=== PATIENT | female | born 1980 | race Caucasian/White ===

== ENCOUNTER 2023-10-02 09:15 | Emergency (ER) | payer OTHER, MEDICARE, SELFPAY ==
[2023-10-02 09:16] VITALS: BP 157/80; PULSE 84; RESP 16; TEMP 36.8; O2SAT 99; BMI 55.4
--- NOTE | 2023-10-02 09:30 | ED.VIS.FALL ---
HPI HPI - Fall History of Present Illness Chief Complaint: Fall Informant: patient and EMS Narrative Narrative: 43-year-old female presenting to the emergency room with a chief complaint of fall. Patient slipped in the mud while pushing the trash can. She states she went down into the splits with the right leg coming forward and ending up with pressure onto the left anterior knee. She notes a left knee laceration and pain. She notes right hamstring pain. She notes her last tetanus was about 3 years ago. History of immunodeficiency. She denies any torso or arm injuries. Tetanus Immunization: <5 years PFSH PFS Medical History Anxiety Asthma Depression Diabetes Diabetic neuropathy Fibromyalgia History of kidney stones History of TMJ disorder Hypercholesteremia Hypertension Hypothyroid Osteoarthritis PTSD (post-traumatic stress disorder) Home Medications cephalexin 500 mg capsule 500 mg PO Q6 #28 CAPSULES 10/02/23 [Rx Last Taken Unknown] hydrocodone-acetaminophen 5-325mg 5mg-325mg 1 tab PO Q6H PRN PRN Pain 3 days #10 TABLETS 10/02/23 [Rx Last Taken Unknown] Allergy/AdvReac Type Severity Reaction Status Date / Time doxycycline Allergy Severe Nausea/Vom/ Verified 10/02/23 09:22 Diarrhea montelukast [From Singulair] Allergy Severe Other Verified 10/02/23 09:22 adhesive tape AdvReac Mild Rash Verified 10/02/23 09:22 Surgical History History of ankle surgery Social History Smoking Status: Never smoker ROS ROS ED Constitutional Constitutional ED: Denies chills or weight loss Eyes Eyes: Denies change in vision or diplopia ENT ENT ED: Denies ear pain, rhinorrhea or sore throat Cardiovascular Cardiovascular: Denies chest pain, orthopnea, palpitations or racing heartbeat Respiratory/Chest Respiratory/Chest: Denies cough, dyspnea or orthopnea Gastrointestinal Gastrointestinal: Denies abdominal pain, diarrhea, nausea or vomiting Genitourinary Genitourinary ED: Denies dysuria, hematuria or urinary frequency Musculoskeletal Musculoskeletal: Reports other Details: See history of present illness ; Denies arthralgias, back pain, myalgias or neck pain Integumentary Reports other Details: Left knee anterior laceration ; Denies abscess or rash Neurologic Neurologic: Denies headache(s) or weakness Psychiatric Psychiatric: Denies anxiety, depression, suicidal ideation or suicidal thoughts Endocrine Endocrinology: Denies polydipsia, polyphagia or polyuria Allergic/Immunologic Allergic/Immunologic ED: Denies mouth swelling, tongue swelling or urticaria EXAM Physical Exam Const Vital Signs: 10/02/23 09:16 Temperature 98.2 F Temperature Source Temporal Pulse Rate 84 Respiratory Rate 16 Blood Pressure 157/80 H Blood Pressure Mean 105 Pulse Ox 99 Oxygen Delivery Method Room Air Positive well nourished, well developed and obese General Appearance ED: well developed Nutritional Appearance: obese HEENT Reports normocephalic, head/scalp atraumatic and moist mucous membranes Eyes PERRL and EOMs intact bilaterally Neck no lymphadenopathy, supple and no JVD Resp normal respiratory effort and clear to auscultation bilaterally Cardio regular rate, regular rhythm and no murmurs GI normal to inspection, nondistended, normoactive bowel sounds and non-tender Palpation: soft Back/Spine no CVA tenderness and normal ROM Extremity Extremity Narrative: Patient with pain right hamstring distribution. There is an anterior left knee laceration measuring about 6 cm in an L-shaped pattern. Extensor mechanism is intact. Neurovascular intact distally bilaterally General Extremety ED: Negative for edema General Extremity: Negative for edema Neuro oriented x3 and CN's II-XII intact bilaterally Sensorium / Orientation: alert Motor Exam: strength 5/5 throughout Psych mental status grossly normal Mood & Affect: Negative for depressed or tearful Skin no rashes or lesions noted and no wounds MDM MDM MDM Narrative Medical decision making narrative: My depend interpretation of the plain films of the right femur is no acute fracture. My independent interpretation of plain films of the pelvis is no acute fracture. My independent interpretation of the two-view knee is no acute fracture or soft tissue injury noted. Patient received [place] and Zofran for pain and nausea control. The left knee laceration was locally anesthetized using 1% lidocaine. It was washed with Shur-Clens irrigated and explored. A small amount of ground material was removed from the wound. The wound was explored in a bloodless field. Wound was closed using a total of 15 simple interrupted 4-0 Ethilon sutures. Wound was then dressed with bacitracin Telfa and then Uriah wrap. Stitches will need to be removed in 10 days. With her immunodeficiency disorder I will write her Keflex. I will also write for some pain medication. Patient to expect increasing soreness over the next 24 to 48 hours. Patient to return if worsening or concerns History & Record Review Discussion w/independent historian: EMS personnel, Patient and Significant other Radiography Diagnostic Testing: Clinical Impression(s) from Imaging Studies Femur X-Ray 10/02/23 09:54 IMPRESSION: Normal x-ray examination of the femur. Electronically Signed: Srinivasa Barfield MD at 10:13 EDT , Knee X-Ray 10/02/23 09:54 IMPRESSION: Soft tissue swelling/injury seen, inferior to the patella. Electronically Signed: Srinivasa Barfield MD at 10:13 EDT , Pelvis X-Ray 10/02/23 09:54 IMPRESSION: Normal x-ray examination of the pelvis. Electronically Signed: Srinivasa Bafrield MD at 10:11 EDT , Discharge Plan Triage Chief Complaint: Fall Other Complaint: Laceration ED Provider: Fracisco Hawk Dx/Rx/DC Orders Clinical Impression: Hamstring muscle strain, Fall, Laceration of knee Instructions: ED Laceration, All Closures, ED Muscle Strain, Extremity Prescriptions: New hydrocodone-acetaminophen [hydrocodone-acetaminophen] 5-325 mg tablet 1 tab PO Q6H PRN PRN (Reason: Pain) 3 Days Qty: 10 0RF cephalexin [cephalexin] 500 mg capsule 500 mg PO Q6 Qty: 28 0RF Primary Care Provider: [facility] Doctor,Out of Referrals: Khoa Licea MD [Med Staff - [employer]] - 10 Day for suture removal [facility] Doctor,Out of [Primary Care Provider] - Disposition Disposition: Home, Self Care
--- NOTE | 2023-10-02 09:54 | RAD_ITS ---
STUDY: X-RAY - PELVIS REASON FOR EXAM: Female, 43 years old. Pain following a fall. TECHNIQUE: One view of the pelvis was obtained. COMPARISON: None. FINDINGS: There is a non-specific bowel gas pattern. IUD seen within the pelvis. Partial sacralization of the transverse process of the L5 vertebrae. Normal bilateral iliac wings, sacroiliac joints and visualized sacrum. Normal visualized bilateral superior and inferior pubic rami. Normal pubic symphysis. Normal ischial tuberosities. Normal visualized right femoral head. Normal right acetabulum. Normal right hip joint. Normal visualized left femoral head. Normal left acetabulum. Normal left hip joint. RAD/Pelvis 1 or 2 Views IMPRESSION: Normal x-ray examination of the pelvis. Electronically Signed: Srinivasa Barfield MD at 10:11 EDT ,
--- NOTE | 2023-10-02 09:54 | RAD_ITS ---
STUDY: X-RAY - RIGHT FEMUR REASON FOR STUDY: Female, 43 years old. Pain following a fall. TECHNIQUE: 4 view(s) of the femur. COMPARISON: None. FINDINGS: Normal visualized femur. Normal visualized soft tissue structure. RAD/Femur Min 2 Views IMPRESSION: Normal x-ray examination of the femur. Electronically Signed: Srinivasa Barfield MD at 10:13 EDT ,
--- NOTE | 2023-10-02 09:54 | RAD_ITS ---
STUDY: X-RAY - LEFT KNEE REASON FOR EXAM: Female, 43 years old. Laceration following a fall. TECHNIQUE: 2 view(s) of the knee. COMPARISON: None. FINDINGS: Normal visualized distal femur. Normal visualized proximal tibia and fibula. Normal proximal tibiofibular articulation. Normal medial femorotibial compartment. Normal lateral femorotibial compartment. Normal patellofemoral articulation. Soft tissue swelling is seen caudad to the patella. RAD/Knee 1 or 2 Views IMPRESSION: Soft tissue swelling/injury seen, inferior to the patella. Electronically Signed: Srinivasa Barfield MD at 10:13 EDT ,
[2023-10-02] MEDS: HYDROcodone Bitartrate/Apap 5/325 Tablet PO (10:07)
[2023-10-02] MEDS: Ondansetron ODT 4 MG Tablet PO (10:09)
[2023-10-02 10:42] VITALS: O2SAT 98
[2023-10-02] MEDS: Lidocaine 1% (20 ml mdv) 20 ML Vial INFILT (10:47)
[2023-10-02 10:48] VITALS: BP 142/79; PULSE 88; RESP 17; TEMP 36.2; O2SAT 98
== END 2023-10-02 11:04 | disposition home or self-care (01) ==
LOC: ED 11:01
PROVIDERS: Emergency Provider Emergency Medicine; Visit Provider Emergency Medicine
DX: S81.022A Laceration with foreign body, left knee, initial encounter (principal); Z68.43 Body mass index [BMI] 50.0-59.9, adult; S76.311A Strain of muscle, fascia and tendon of the posterior muscle group at thigh level, right thigh, initial encounter; W01.0XXA Fall on same level from slipping, tripping and stumbling without subsequent striking against object, initial encounter; Y93.89 Activity, other specified; Y99.8 Other external cause status; E66.9 Obesity, unspecified
CPT/HCPCS: 12002; 72170; 73552; 73560; 99285

== ENCOUNTER → 2023-11-09 | Outpatient (CLI) | payer OTHER, MEDICARE, SELFPAY ==
[2023-11-09 17:59] LABS: Hemoglobin A1c 9.2 % (3.8-5.6)
[2023-11-12 14:08] LABS: Insulin Level 1.6 uIU/mL (2.6-24.9)
== END | disposition home or self-care (01) ==
LOC: MFPLAB 15:46
PROVIDERS: Visit Provider Family Medicine
DX: E10.9 Type 1 diabetes mellitus without complications (principal)
CPT/HCPCS: 36415; 83036; 83525; 84681

== ENCOUNTER → 2023-11-19 | Outpatient (CLI) | payer OTHER, MEDICARE, SELFPAY ==
--- NOTE | 2023-11-19 08:00 | MRI_ITS ---
STUDY: MRI LEFT KNEE REASON FOR EXAM: Female, 43 years old. Pain. Knee locking. Status post fall. Rule out meniscus tear. TECHNIQUE: Standardized fat and water weighted pulse sequences were obtained in all 3 orthogonal planes. COMPARISON: Left knee radiographs dated 11/05/2023. FINDINGS: Normal medial meniscus. Normal hyaline cartilage of the medial femorotibial compartment. Normal medial femoral condyle and tibial plateau. There is a mild grade I MCL sprain with periligamentous edema (T2 series 9 image 19). Normal distal semimembranosus, gracilis and semitendinosus tendons. Normal lateral meniscus. Normal hyaline cartilage of the lateral femorotibial compartment. Normal lateral femoral condyle and tibial plateau. Normal proximal tibiofibular articulation. Normal lateral collateral (fibular) ligament. Normal popliteus tendon. Normal biceps femoris tendon. Normal anterior cruciate ligament (ACL). Normal posterior cruciate ligament (PCL). There is low-grade chondromalacia patellae. Congruent patellofemoral articulation. Normal medial and lateral patellar retinaculum. Normal quadriceps tendon. Normal patellar tendon. Normal Hoffa''s fat pad. There is a small joint effusion. There is a tiny popliteal cyst. There is mild subcutaneous soft tissue edema along the anterior aspect of the knee. There is no acute fracture. MRI/Lower Ext Joint Only (Routine) IMPRESSION: Mild grade I MCL sprain. Low-grade chondromalacia patellae. Small joint effusion, with a tiny popliteal cyst. Mild subcutaneous soft tissue edema along the anterior aspect of the knee. No discrete meniscal tear. Electronically Signed: Jorge Morales MD at 12:26 EDT ,
== END | disposition home or self-care (01) ==
LOC: MRI 07:32
PROVIDERS: PCP Family Medicine; Referring Provider Orthopaedic Surgery; Visit Provider Orthopaedic Surgery
DX: M25.562 Pain in left knee (principal)
CPT/HCPCS: 73721

== ENCOUNTER 2023-11-20 17:56 | Emergency (ER) | payer OTHER, MEDICARE, SELFPAY ==
[2023-11-20 17:57] VITALS: BP 161/85; PULSE 100; RESP 18; TEMP 36.2; O2SAT 98; BMI 51.3
--- NOTE | 2023-11-20 19:55 | EDS_ITS ---
HPI History of Present Illness Chief Complaint: Hyperglycemia [facility] Medical History Anxiety Asthma Depression Diabetes Diabetic neuropathy Fibromyalgia History of kidney stones History of TMJ disorder Hypercholesteremia Hypertension Hypothyroid Osteoarthritis PTSD (post-traumatic stress disorder) Home Medications ?Medication ?Instructions ?Recorded ?Last Taken ?Type amlodipine 5 mg tablet 5 mg PO DAILY 11/05/23 Unknown History azelastine 205.5 mcg (0.15 %) 1 spray intranasal BID 11/05/23 Unknown History nasal spray buspirone 30 mg tablet 30 mg PO BID 11/05/23 Unknown History cetirizine 10 mg capsule (Zyrtec) 10 mg PO DAILY PRN 11/05/23 Unknown History chlorthalidone 15 mg tablet 15 mg PO DAILY 11/05/23 Unknown History dexlansoprazole 60 mg 60 mg PO DAILY 11/05/23 Unknown History capsule,biphase delayed release (Dexilant) gabapentin 100 mg capsule 1,200 mg PO DAILY 11/05/23 Unknown History immun glob G 10 gram/50 mL(20 8,000 mg subcut QWEEK 11/05/23 Unknown History %)-pro-IgA 0-50 mcg/mL subcutaneous soln (Hizentra) insulin lispro 200 unit/mL (3 mL) 20 unit subcut DAILY 11/05/23 Unknown History subcutaneous pen (Humalog KwikPen U-200 Insulin) levothyroxine 50 mcg tablet 50 mcg PO DAILY 11/05/23 Unknown History (Unithroid) mometasone-formoterol HFA 50 mcg-5 2 puff inhalation Q12H 11/05/23 Unknown Hi story mcg/actuation aerosol inhaler (Dulera) prednisone 10 mg tablet 10 mg PO DAILY 11/05/23 Unknown History rosuvastatin 5 mg tablet 5 mg PO DAILY 11/05/23 Unknown History tezepelumab-ekko 210 mg/1.91 mL 210 mg subcut Q4W 11/05/23 Unknown History (110 mg/mL) subcutaneous pen injector (Tezspire) tiotropium bromide 2.5 2 puff inhalation DAILY 11/05/23 Unknown History mcg/actuation mist for inhalation (Spiriva Respimat) tizanidine 2 mg capsule 2 mg PO Q8H PRN 11/05/23 Unknown History sulfamethoxazole 800 1 tab PO BID #14 tabs 11/20/23 Unknown Rx mg-trimethoprim 160 mg tablet (Bactrim DS) Allergy/AdvReac Type Severity Reaction Status Date / Time doxycycline Allergy Severe Nausea/Vom/ Verified 11/20/23 17:57 Diarrhea montelukast (From Singulair) Allergy Severe Other Verified 11/20/23 17:57 adhesive tape AdvReac Mild Rash Verified 11/20/23 17:57 Surgical History History of ankle surgery Social History Smoking Status: Never smoker EXAM Physical Exam Const Vital Signs: 11/20/23 17:57 11/20/23 20:00 11/20/23 20:08 Temperature 97.2 F L Temperature Source Temporal Pulse Rate 100 96 Respiratory Rate 18 20 H Respiratory Pattern Normal Blood Pressure 161/85 H 157/72 H Blood Pressure Mean 110 100 Pulse Ox 98 99 Oxygen Delivery Method Room Air Room Air 11/20/23 22:00 Temperature Temperature Source Pulse Rate 92 Respiratory Rate 26 H Respiratory Pattern Blood Pressure 149/75 H Blood Pressure Mean 99 Pulse Ox 94 Oxygen Delivery Method Room Air MDM MDM MDM Narrative Medical decision making narrative: HISTORY OF PRESENT ILLNESS: 43-year female presents with concern for elevated blood sugar. Note she is history of diabetes has insulin pump in place however her blood sugars have been high for the last week. She does note urinary frequency and suprapubic pressure. REVIEW OF SYSTEMS: Pertinent positives: Elevated blood sugar, frequency, suprapubic pressure Pertinent negatives: Vomiting, diarrhea PHYSICAL EXAM: Nursing triage notes reviewed, Vital signs reviewed Constitutional: please see mdm HENT: MMM Eyes: Pupils equal round and reactive to light, Extraocular muscles intact Neck: No stridor, no JVD, full neck ROM Lungs: Clear to auscultation, No wheezing or rales. No increased work of breathing, no conversational dyspnea, no accessory muscle use, no nasal flaring. No respiratory distress noted Heart: Regular rate and rhythm, No murmurs, No rubs and No gallops, 2+ distal pulses (radial, femoral, posterior tibial) in all extremities Abdomen: Soft, there is no tenderness, rigidity, rebound or guarding, no obvious peritoneal signs, no palpable pulsatile abdominal masses, no auscultated abdominal bruit : No CVAT Extremities: No edema Neuro: No focal neurological deficits, cranial nerves II through XII intact, 5/5 strength in all extremities. Intact sensation to light touch in all extremities, 2+ reflexes bilateral patella tendons. Normal gait. No ataxia. Skin: No rash or lesions noted MEDICAL DECISION MAKING: Chief Complaint: Elevated blood sugar External records reviewed: No recent hospitalizations, no hospitalizations for DKA noted Factors affecting care: Type 2 diabetes MDM Narrative: Patient was hemodynamically stable, afebrile and nontoxic-appearing. Exam without obvious focus of infection. I considered the following differential diagnosis: DKA, HHS, poorly controlled diabetes I obtained a broad lab and imaging workup to further elucidate the etiology patient complaints ALL IMAGES (IF OBTAINED) HAVE BEEN PERSONALLY REVIEWED AND INTERPRETED BY MYSELF. VBG without evidence of metabolic acidosis, bicarb is greater than 15 BMP without evidence of severe elevation anion gap, bicarb 25, there is hyponatremia and hypokalemia (hypokalemia replace with oral potassium), blood sugar 397 Lipase is wnl indicating no pancreatic inflammation. Acetone small consistent with poor glucose utilization Urinalysis shows no evidence of urinary inflammation suggestive of UTI The synthesis of the patient's history, physical exam, labs images suggest poorly controlled diabetes. The patient does have an insulin pump. I encouraged her to continue with her ongoing insulin therapy via insulin pump and to call her sales and marketing agent for outpatient antidiabetic medication titration. The patient and/or family, caregivers express understanding. The patient and/or family, caregivers agrees with the plan. Shared decision making: I will have a discussion with the patient and or visitors regarding risk/benefits of further testing or admission. They will be made aware of of the risk/benefits inherent in this decision they will be given the opportunity to voice understanding. Total critical care time today provided was at least 0 [] minutes. This excludes separately billable procedures. Critical care time (if documented) is secondary to the patient having high probability of clinically significant/life threatening deterioration in the patient's condition which required my urgent intervention. Impression: 1. Poorly controlled type 2 diabetes 2. History of type 2 diabetes 3. Pseudohyponatremia 4. Hypokalemia Dispo: Discharge home This note was generated with Echo[employer] dictation software. It may contain incorrect words, spelling, and punctuation that were not noted in review of the chart prior to signing. Lab Data Labs: Laboratory Results - last 24 hr 11/20/23 11/20/23 11/20/23 19:45 20:12 21:02 WBC 12.5 H RBC 5.08 Hgb 14.7 Hct 44.0 MCV 86.6 MCH 28.9 MCHC 33.4 RDW Std Deviation 50.3 H RDW Coeff of Danuta 15.7 H Plt Count 340 MPV 11.8 Immature Gran % (Auto) 0.600 Neut % (Auto) 83.2 H Lymph % (Auto) 12.3 L Imperial % (Auto) 3.5 Eos % (Auto) 0.1 Baso % (Auto) 0.3 Absolute Neuts (auto) 10.4 H Absolute Lymphs (auto) 1.53 Nucleated RBC % 0 Sodium 132 L Potassium 2.7 L* Chloride 91 L Carbon Dioxide 25.0 Anion Gap 16 H BUN 10 Creatinine 0.88 Estim Creat Clear Calc 120.13 Est GFR (MDRD) Af Amer 90 Est GFR (MDRD) Non-Af 74 BUN/Creatinine Ratio 11.4 Glucose 397 H Calcium 9.8 Lipase 32 Urine Color Urine Clarity Urine pH Ur Specific Lindsey Urine Protein Urine Glucose (UA) Urine Ketones Urine Occult Blood Urine Nitrite Urine Bilirubin Urine Urobilinogen Ur Leukocyte Esterase Acetone Level SMALL H POC Glucose 400 H 11/20/23 11/20/23 22:19 22:50 WBC RBC Hgb Hct MCV MCH MCHC RDW Std Deviation RDW Coeff of Danuta Plt Count MPV Immature Gran % (Auto) Neut % (Auto) Lymph % (Auto) Imperial % (Auto) Eos % (Auto) Baso % (Auto) Absolute Neuts (auto) Absolute Lymphs (auto) Nucleated RBC % Sodium Potassium Chloride Carbon Dioxide Anion Gap BUN Creatinine Estim Creat Clear Calc Est GFR (MDRD) Af Amer Est GFR (MDRD) Non-Af BUN/Creatinine Ratio Glucose Calcium Lipase Urine Color Yellow Urine Clarity Clear Urine pH 7.0 Ur Specific Lindsey 1.010 Urine Protein Negative Urine Glucose (UA) 1000 H Urine Ketones 50 H Urine Occult Blood 10 H Urine Nitrite Negative Urine Bilirubin Negative Urine Urobilinogen Normal Ur Leukocyte Esterase Negative Acetone Level POC Glucose 424 H ABG Data ABG results: ABG 11/20/23 20:22 Specimen Type NIKKI Sample Site Not entered VBG pH 7.45 H VBG pO2 43 H VBG HCO3 26 VBG Total CO2 27 VBG O2 Sat (Calc) 81 H VBG Base Excess 2 POC Mix VBG pCO2 Pt Tmp 37.6 L O2 Delivery Device Room Air Discharge Plan Triage Chief Complaint: Hyperglycemia ED Provider: Kevon Cardona Dx/Rx/DC Orders Clinical Impression: Acute hyperglycemia, Acute hypokalemia Instructions: High Blood Sugar (Hyperglycemia), ED Hypokalemia Prescriptions: New sulfamethoxazole-trimethoprim [Bactrim DS] 800-160 mg tablet 1 tab PO BID Qty: 14 0RF No Action dexlansoprazole [Dexilant] 60 mg capsule,biphase delayed releas 60 mg PO DAILY prednisone 10 mg tablet 10 mg PO DAILY Spiriva Respimat 2.5 mcg/actuation mist 2 puff inhalation DAILY Dulera 50-5 mcg/actuation HFA aerosol inhaler 2 puff inhalation Q12H amlodipine 5 mg tablet 5 mg PO DAILY Hizentra 10 gram/50 mL (20 %) solution 8,000 mg subcut QWEEK Humalog KwikPen Insulin 200 unit/mL (3 mL) insulin pen 20 unit subcut DAILY Tezspire 210 mg/1.91 mL (110 mg/mL) pen injector 210 mg subcut Q4W levothyroxine [Unithroid] 50 mcg tablet 50 mcg PO DAILY gabapentin 100 mg capsule 1,200 mg PO DAILY rosuvastatin 5 mg tablet 5 mg PO DAILY Zyrtec 10 mg capsule 10 mg PO DAILY PRN azelastine 205.5 mcg (0.15 %) spray,non-aerosol 1 spray intranasal BID Rx Instructions: administer into each nostril buspirone 30 mg tablet 30 mg PO BID chlorthalidone 15 mg tablet 15 mg PO DAILY tizanidine 2 mg capsule 2 mg PO Q8H PRN Primary Care Provider: Cori Kruse Referrals: Cori Kruse MD [Primary Care Provider] - Activity Restrictions/Additional Instructions: Thank you for trusting us with your care today! Please continue to use her insulin pump as directed. Please return to the emergency department if your symptoms change or worsen. Please follow with your primary care physician and/or sales and marketing agent for further outpatient evaluation and management. Print Language: Czech
[2023-11-20 20:00] VITALS: BP 157/72; PULSE 96; RESP 20; O2SAT 99
[2023-11-20] MEDS: 0.9% Normal Saline (1000mL) 1,000 ML 999 ML IV (20:04)
[2023-11-20 20:25] LABS: Blood Gas Specimen Type VEN; O2 Delivery Device Room Air; SITE Not entered; VBG BASE EXCESS 2 mmol/L (-1.0-3.5); VBG Bicarbonate 26 mmol/L (22-26); VBG PO2 43 mmHg (25-40); VBG SO2 81 % (50-70); VBG TCO2 27 mmol/L (23-33); VBG pCO2 37.6 mmHg (41-51); VBG pH 7.45 (7.32-7.42)
[2023-11-20 20:33] LABS: Bedside Glucose 400 mg/dL (74-106)
[2023-11-20 21:21] LABS: Absolute Lymphocyte Count 1.53 X10^3/uL (0.83-4.51); Absolute Neutrophil Count 10.4 X10^3/uL (2.0-7.7); Basophil# 0.04 X10^3/uL; Basophil% 0.3 % (0-1); Eosinophil# 0.01 X10^3/uL; Eosinophils% 0.1 % (0-5); Hemoglobin 14.7 g/dL (12.0-15.0); Lymphocyte # 1.53 X10^3/ul (0.83-4.51); Lymphocyte % 12.3 % (19-41); Mean Corp Hgb Conc 33.4 g/dL (32-36); Mean Corpuscular Hgb 28.9 pg (27.0-32.0); Mean Corpuscular Volume 86.6 fL (81-99); Mean Platelet Vol. 11.8 fl (6.2-12.0); Monocyte# 0.44 X10^3/uL; Monocyte% 3.5 % (0-10); NRBC Flagged by Analyzer 0 % (0-5); Neutrophil # 10.39 X10^3/uL (2.7-7.7); Neutrophil % 83.2 % (47-70); Platelet Count 340 K/mm3 (150-450); RBC Distribution Width CV 15.7 % (11.6-14.6); RBC Distribution Width SD 50.3 fl (35.1-43.9); Red Blood Count 5.08 M/mm3 (4.2-5.4); White Blood Count 12.5 K/mm3 (4.4-11.0)
[2023-11-20 21:42] LABS: Anion Gap 16 (5-15); BUN 10 mg/dL (7-18); BUN/Creat Ratio 11.4 RATIO (10-20); Calcium,Total 9.8 mg/dL (8.5-10.1); Chloride 91 mmol/L (98-107); Creatinine, Serum 0.88 mg/dL (0.55-1.02); EST Glomerular Filtration Rate 74 mL/min (>60); Est Glom Filt Rate - Afr Amer 90 mL/min (>60); Estimated Creatinine Clearance 120.13 ml/min; Glucose 397 mg/dL (74-106); Lipase 32 U/L (13-75); Potassium 2.7 mmol/L (3.5-5.1); Sodium Level 132 mmol/L (136-145)
[2023-11-20 22:00] VITALS: BP 149/75; PULSE 92; RESP 26; O2SAT 94
[2023-11-20] MEDS: Potassium Chloride Oral Tablet 20 MEQ 60 MEQ PO (22:12)
[2023-11-20 22:37] LABS: Bedside Glucose 424 mg/dL (74-106)
[2023-11-20 23:01] LABS: Bacteria 0 SEEN /hpf (None Seen); Mucous, Urine 0 SEEN /hpf (<or=2+); White Blood Cells 0 SEEN /hpf (0-5)
[2023-11-20 23:02] LABS: Color, Urine Yellow (Yellow); Glucose, Dipstick 1000 mg/dl (Normal); Ketone-Dipstick 50 mg/dl (Negative); Leukocyte Esterase-Dipstick Negative /ul (Negative); Nitrite-Dipstick Negative (Negative); Occult Blood-Urine 10 /ul (Negative); Protein-Dipstick Negative (Negative); Urine Bilirubin Dipstick Negative (Negative); Urine Clarity Clear (Clear); Urine Urobilinogen Normal (Normal)
[2023-11-20 23:11] LABS: Red Blood Cells-Urine 0-5 SEEN /hpf (0-5); Squamous Epithelial Cells - UA 0-5 SEEN /hpf (5-10)
[2023-11-20 23:12] LABS: Yeast-Urine RARE /hpf (None Seen)
[2023-11-20 23:14] LABS: Magnesium 1.7 mg/dL (1.6-2.6)
[2023-11-20 23:29] LABS: Bedside Glucose 309 mg/dL (74-106)
== END 2023-11-20 23:22 | disposition home or self-care (01) ==
PROVIDERS: Student in an Organized Health Care Education/Training Program; Emergency Provider Emergency Medicine; PCP Family Medicine; Visit Provider Emergency Medicine
DX: E11.65 Type 2 diabetes mellitus with hyperglycemia (principal); E87.6 Hypokalemia; J45.909 Unspecified asthma, uncomplicated; E87.1 Hypo-osmolality and hyponatremia; Z96.41 Presence of insulin pump (external) (internal)
CPT/HCPCS: 80048; 81001; 82009; 82803; 82962; 83690; 83735; 85025; 96360; 96361; 99283; J7030; A4216

== ENCOUNTER → 2023-12-03 | Outpatient (CLI) | payer OTHER, MEDICARE, SELFPAY ==
--- NOTE | 2023-12-03 10:30 | RAD_ITS ---
STUDY: X-RAY - CERVICAL SPINE REASON FOR EXAM: Female, 43 years old. NECK PAIN TECHNIQUE: 3 view(s) of the cervical spine were obtained. COMPARISON: None FINDINGS: Normal anterior atlantoaxial articulation. Normal odontoid process. There is straightening of the normal cervical lordosis. Normal vertebral bodies and endplates. Normal disc space heights. Normal visualized intervertebral neuroforamina. The soft tissue structures are unremarkable. RAD/Cerv Spine 2 or 3 Views IMPRESSION: Straightening of the normal cervical lordosis. Electronically Signed: Srinivasa Barfield MD at 15:31 EDT ,
--- NOTE | 2023-12-03 10:31 | RAD_ITS ---
STUDY: X-RAY - LUMBAR SPINE REASON FOR EXAM: Female, 43 years old. BACK PAIN TECHNIQUE: 2 view(s) of the lumbar spine were obtained. COMPARISON: None FINDINGS: Normal lumbar lordosis. There is no substantial scoliosis. There is a normal alignment of the vertebrae. There is partial lumbarization of the S1 vertebrae. Normal vertebral bodies and endplates. Moderate degree of disc space narrowing at the L5-S1 level. IUD is seen within the pelvis. RAD/Lumbar Spine 2 or 3 Views IMPRESSION: Degenerative changes of the spine, as detailed above. Partial lumbarization of the S1 vertebrae. Electronically Signed: Srinivasa Barfield MD at 15:32 EDT ,
== END | disposition home or self-care (01) ==
LOC: RAD 10:15
PROVIDERS: PCP Family Medicine; Referring Provider Anesthesiology Pain Medicine; Visit Provider Anesthesiology Pain Medicine
DX: M54.2 Cervicalgia (principal); M54.9 Dorsalgia, unspecified
CPT/HCPCS: 72040; 72100

== ENCOUNTER → 2024-01-29 | Outpatient (CLI) | payer OTHER, MEDICARE, SELFPAY ==
[2024-01-29 12:46] LABS: Vitamin B12 530 pg/mL (211-911); Vitamin D,25 Hydroxy 36.6 ng/mL
[2024-01-29 12:49] LABS: Ferritin 32 ng/mL (8-252); Iron 66 ug/dL (50-170); Iron Binding Capacity,Total 434 ug/dL (250-450); Magnesium 2.1 mg/dL (1.6-2.6); PERCENT IRON SATURATION 15.2 % (15.0-55.0); Potassium 3.3 mmol/L (3.5-5.1)
== END | disposition home or self-care (01) ==
LOC: MFPLAB 09:46
PROVIDERS: PCP Family Medicine; Visit Provider Family Medicine
DX: E61.1 Iron deficiency (principal); K90.0 Celiac disease; E87.6 Hypokalemia
CPT/HCPCS: 36415; 82306; 82607; 82728; 83540; 83550; 83735; 84132

== ENCOUNTER 2024-02-04 14:10 | Outpatient (CLI) | payer OTHER, MEDICARE, SELFPAY ==
--- NOTE | 2024-02-04 13:45 | MRI_ITS ---
STUDY: MRI CERVICAL SPINE WITHOUT CONTRAST REASON FOR EXAM: Female, 43 years old. RADICULOPATHY TECHNIQUE: Standardized fat and water weighted pulse sequences were obtained in the sagittal and axial planes. COMPARISON: X-ray 12/03/2023 FINDINGS: Normal foramen magnum and brainstem-cervical cord junction. Normal craniovertebral junction. Normal anterior atlantoaxial articulation. Normal odontoid process. Normal cervical lordosis. Normal vertebral bodies and posterior osseous elements. C2-3: Normal endplates. Normal disc height, signal and morphology. Normal central canal and intervertebral neural foramina. C3-4: Normal endplates. Normal disc height, signal and morphology. Normal central canal and intervertebral neural foramina. C4-5: Normal endplates. Normal disc height, signal and morphology. Normal central canal and intervertebral neural foramina. C5-6: Normal endplates. Normal disc height, signal and morphology. Normal central canal and intervertebral neural foramina. C6-7: Normal endplates. Normal disc height, signal and morphology. Normal central canal and intervertebral neural foramina. C7-T1: Normal endplates. Normal disc height, signal and morphology. Normal central canal and intervertebral neural foramina. Normal cervical cord. Normal visualized soft tissue structures. MRI/Spine Cervical (Routine) IMPRESSION: Normal unenhanced MR examination of the cervical spine. Electronically Signed: Fam Sweeney MD at 14:41 EDT ,
== END 2024-02-04 23:59 | disposition home or self-care (01) ==
LOC: MRI 14:11
PROVIDERS: PCP Family Medicine; Referring Provider Anesthesiology Pain Medicine; Visit Provider Anesthesiology Pain Medicine
DX: M54.12 Radiculopathy, cervical region (principal)
CPT/HCPCS: 72141

== ENCOUNTER 2024-03-20 09:30 | Outpatient (RCR) | payer MEDICARE, SELFPAY ==
--- NOTE | 2024-02-18 10:26 | HP.PTEVAL_ITS ---
Patient's Visit Information Visit Information Visit Information: DARINEL COPELAND is a 43 year old F referred to Physical Therapy by Dr. Angel Marr MD with a diagnosis of LBP. Date of Evaluation: 02/18/24 Physical Therapist: Stevo Daniels, PT, ATC Visit Plan Frequency: 2x /Week Duration: 4-6 Weeks Plan: Postural education, SEBASTIEN, core stab ex's, B LE strengthening, and HEP Subjective Subjective: Pt reports having LBP for many years. Pt notes she has had PT and injections in the past, but continues to suffer from LBP. Pt notes she has had M RI's which revealed stenosis and DDD. Pt reports her R leg will go completely numb if she drives for a long period of time. Pt reports she has diabetic neuropathy in both of her legs and her hands. Pt reports sleep difficulty at this time secondary to LBP. Pt reports she is limited with all activity at this time secondary to pain. Pt reports ambulation greater than 10 steps starts to increase her pain. Pt reports she has an immune deficiency which makes her feel really sick when her pain gets bad. 4/10 pain while sitting here in the clinic, 10/10 pain at worst. Pain LBP: Pain Intensity (Out of 10): 4 Pain Intensity Range: 10 Objective Objective: Neuro: L LE sensation is hyposensitive to light touch. R LE sensation is WNL to light touch. MMT: B hip flexion and knee flexion are 4-/5. All other LE measurements are 5/5 throughout ROM: L/S extension is mildly limited. All other ranges are WNL Repeated movements: RFIS 10x2 increases LBP. SEBASTIEN 10x2 decreases LBP Balance/Special Test Scores Oswestry Low Back Score: 28 Goals Goal 1:: Decrease LBP x 25 percent to aid with sleep Goal Time Frame: 4-6 Weeks Goal 2:: Decrease R LE radiculopathy x 25 percent to aid with ambulation Goal Time Frame: 4-6 Weeks Goal 3:: I with HEP Goal Time Frame: 4-6 Weeks Goal 4:: Pt will be able to ambulate greater than 1000 feet without R LE radiculopathy Goal Time Frame: 4-6 Weeks Rehabilitation Potential Physical Therapy Diagnosis: Pt has LBP, limited L/S ROM, and R LE radiculpathy secondary to L/S disc derrangement Rehabilitation Potential: Good Anticipated Interventions Patient/Client Instruction: Educate patient on: Condition and Plan of Care For the Purpose of:: To improve self management Therapeutic Exercise to Include: Strength training, Body mechanics, Postural training, Flexibilty training and Dynamic Lumbar Stabilization For the Purpose of:: To decrease pain, To improve muscle performance and motor function and To increase tolerance to activity/condition/position Text: Thank you for the opportunity to evaluate your patient. For Medicare and Medicare HMO plans, please review the plan of care and approve it. It will need to be FAXED BACK to us at [phone] for Medicare purposes. For Medicare only, by signing this I certify the plan of care. Please let me know if there are questions or concerns regarding this plan of care. Physician Signature: Date:
--- NOTE | 2024-03-20 10:31 | HP.PTDCSUM ---
Discharge Summary D/C summary: It has been my pleasure to treat DARINEL COPELAND referred by Dr. Angel Marr MD, with the diagnosis of LBP for a total of 6 visit(s). Discharge Date: Please see the following information for a summary of their discharge status. Subjective Subjective: Pt reports she is no better at this time. Pain LBP: Pain Intensity (Out of 10): 7 R shoulder: Pain Intensity (Out of 10): 4 neck: Pain Intensity (Out of 10): 0 Overall Improvement % Improvement: 0 Objective Objective/Function: LBP and R LE radiculopathy has remained unchanged Pt is I with HEP Pt is able to ambulate 220 feet until needing to stop secondary to R LE radiculopathy Goals Goal 1:: Decrease LBP x 25 percent to aid with sleep Goal Progress: Not Progressing Goal 2:: Decrease R LE radiculopathy x 25 percent to aid with ambulation Goal Progress: Not Progressing Goal 3:: I with HEP Goal Progress: Goal Met Goal 4:: Pt will be able to ambulate greater than 1000 feet without R LE radiculopathy Goal Progress: Not Progressing Plan Plan: Discontinue, return to doctor secondary to lack of progress D/C Information d/c sentence: If there are questions or concerns regarding this patient's physical therapy, please feel free to call me at [phone]. Thank you for the referral of this patient. Sincerely, Stevo Daniels, PT, ATC Balance/Gait/Functional tests Balance/Special Test Scores Oswestry Low Back Score: 28 Improvement % Improvement: 0
== END 2024-03-20 10:42 | disposition home or self-care (01) ==
LOC: PT 09:30
PROVIDERS: PCP Family Medicine; Referring Provider Anesthesiology Pain Medicine; Visit Provider Anesthesiology Pain Medicine
DX: M54.9 Dorsalgia, unspecified (principal)
CPT/HCPCS: 97110; 97161; 97530

== ENCOUNTER 2024-05-20 08:00 | Outpatient (RCR) | payer MEDICARE, SELFPAY ==
--- NOTE | 2024-04-28 10:05 | HP.PTEVAL ---
Patient's Visit Information Visit Information Visit Information: DARINEL COPELAND is a 43 year old F referred to Physical Therapy by Dr. Vito House DPM with a diagnosis of B palntarfascitis. 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 Pt notes she has intermittent flare ups which results in pain. Pt notes she has orthotics now which do help some, but she continues to experience pain. Pt notes she had x-rays which revealed heel spurs. Pt reports she used to only have pain [place] the [place], but now she experiences pain now when walking on uneven ground. Pt reports she has a very difficult time with standing after sitting for a long period of time secondary to pain. Pt reports she has 2 stairs to enter her house which she is able to negotiate without difficulty. Pt notes she has a Hx of falls secondary to her neuropathy. Pt notes she has tingling and numbness in her LE's which has been present for over 10 years. Pt reports sleep difficulty at this time secondary to pain. Pt reports she would like to be able to lose weight, but she cant because of her foot pain. 3/10 pain while sitting here at rest, 8/10 pain at worst (when she stands for a prolonged period of time) Pain B feet: Pain Intensity (Out of 10): 3 Pain Intensity Range: 8 Objective Objective: Neuro: L LE is hyposensitive to light touch. R LE sensation is WNL to light touch. ROM: L ankle DF= -2, PF= 55 degrees; R ankle DF= 4, PF= 55 degrees MMT: L ankle DF= 39, PF= 53 #F; R ankle DF= 36, PF= 56 #F TU seconds six minute walk test: Pt is able to ambulate 340 feet (2 min, 15 sec) until having to rest secondary to L leg going numb Balance/Special Test Scores Lower Extremity Functional Score: 19 Goals Goal 1:: Increase B ankle DF ROM x 10 degrees to aid with decreasing pain Goal Time Frame: 2-4 Weeks Goal 2:: Decrease B foot pain x 50% to aid with sleep Goal Time Frame: 2-4 Weeks Goal 3:: Pt will perform a TUG test in under 10 seconds to aid with community ambulation Goal Time Frame: 2-4 Weeks Goal 4:: I with HEP Goal Time Frame: 2-4 Weeks Rehabilitation Potential Physical Therapy Diagnosis: Pt has B foot pain and limited ankle DF ROM secondary to B ankle plantarfacsitis Rehabilitation Potential: Good Anticipated Interventions Patient/Client Instruction: Educate patient on: Condition and Plan of Care For the Purpose of:: To improve self management Therapeutic Exercise to Include: Flexibilty training and Active ROM For the Purpose of:: To decrease pain and To increase ROM Manual Therapy Techniques to Include: Soft tissue mobilization For the Purpose of:: To decrease pain and To increase ROM Ultrasound (thermal/non thermal): Yes For the Purpose of:: To decrease pain and To increase ROM Text: Thank you for the opportunity to evaluate your patient. For Medicare and Medicare HMO plans, please review the plan of care and approve it. It will need to be FAXED BACK to us at [phone] for Medicare purposes. For Medicare only, by signing this I certify the plan of care. Please let me know if there are questions or concerns regarding this plan of care. Physician Signature: Date:
--- NOTE | 2024-05-20 08:38 | HP.PTDCSUM ---
Discharge Summary D/C summary: It has been my pleasure to treat DARINEL COPELAND referred by Dr. Vito House DPM, with the diagnosis of B palntarfascitis for a total of 6 visit(s). Discharge Date: Please see the following information for a summary of their discharge status. Subjective Subjective: I just received an injection yesterday. It hasn't helped yet. Pain B feet: Pain Intensity (Out of 10): 3 Overall Improvement % Improvement: 90 Objective Objective/Function: R foot pain 3/10, L foot pain 1/10 B ankle DF ROM 10 degrees TU.65 sec Pt is I with HEP Goals Goal 1:: Increase B ankle DF ROM x 10 degrees to aid with decreasing pain Goal Progress: Goal Met Goal 2:: Decrease B foot pain x 50% to aid with sleep Goal Progress: Goal Met Goal 3:: Pt will perform a TUG test in under 10 seconds to aid with community ambulation Goal Progress: Progressing Goal 4:: I with HEP Goal Progress: Goal Met Plan Plan: Discharge to HEP D/C Information d/c sentence: If there are questions or concerns regarding this patient's physical therapy, please feel free to call me at [phone]. Thank you for the referral of this patient. Sincerely, Stevo Daniels, PT, ATC Balance/Gait/Functional tests Balance/Special Test Scores Lower Extremity Functional Score: 19 Improvement % Improvement: 90
== END 2024-05-20 10:28 | disposition home or self-care (01) ==
LOC: PT 08:00
PROVIDERS: PCP Family Medicine; Referring Provider Student in an Organized Health Care Education/Training Program; Visit Provider Student in an Organized Health Care Education/Training Program
DX: M72.2 Plantar fascial fibromatosis (principal)
CPT/HCPCS: 97110; 97140; 97161; 97530

== ENCOUNTER 2024-06-03 04:05 | Emergency (ER) | payer MEDICARE, SELFPAY ==
[2024-06-03 04:06] VITALS: BP 165/78; PULSE 113; RESP 18; TEMP 37.2; O2SAT 95; BMI 55.2
[2024-06-03 04:10] VITALS: BP 165/78; PULSE 113; RESP 18; TEMP 37.2; O2SAT 95
--- NOTE | 2024-06-03 04:54 | ED.VIS.GI ---
HPI HPI - GI History of Present Illness Chief Complaint: Diarrhea Informant: patient Nausea/Vomiting/Emesis GI Symptom: Negative for Nausea Diarrhea/Melena/Hematochezia GI Symptom: Positive for Diarrhea Onset: Today and Yesterday Stool Quality: Positive for Watery Severity: Moderate Narrative Narrative: 43-year-old female history of diabetes and cellulitis in the past. Recently finished a 10-day course of Keflex 3 times a day for right lower extremity cellulitis. Had been doing well. Last night around 7 PM and into this morning she has had multiple episodes of diarrhea every 2030 minutes. Watery brown. No blood. No nausea or vomiting. No abdominal pain. No history of C. difficile. No recent hospitalization. Prior similar symptoms: No Recent Illness/Hospitalization: No PFSH PFSH Medical History Diabetic neuropathy Osteoarthritis Fibromyalgia History of TMJ disorder PTSD (post-traumatic stress disorder) Depression Anxiety History of kidney stones Hypothyroid Hypercholesteremia Hypertension Diabetes Asthma Home Medications ?Medication ?Instructions ?Recorded ?Last Taken ?Type amlodipine 5 mg tablet 5 mg PO DAILY 11/05/23 Unknown History azelastine 205.5 mcg (0.15 %) 1 spray intranasal BID 11/05/23 Unknown History nasal spray buspirone 30 mg tablet 30 mg PO BID 11/05/23 Unknown History cetirizine 10 mg capsule (Zyrtec) 10 mg PO DAILY PRN allergy symptoms 11/05/23 Unknown History chlorthalidone 15 mg tablet 15 mg PO DAILY 11/05/23 Unknown History dexlansoprazole 60 mg 60 mg PO DAILY 11/05/23 Unknown History capsule,biphase delayed release (Dexilant) gabapentin 100 mg capsule 1,200 mg PO DAILY 11/05/23 Unknown History immun glob G 10 gram/50 mL(20 8,000 mg subcut QWEEK 11/05/23 Unknown History %)-pro-IgA 0-50 mcg/mL subcutaneous soln (Hizentra) insulin lispro 200 unit/mL (3 mL) 20 unit subcut DAILY 11/05/23 Unknown History subcutaneous pen (Humalog KwikPen U-200 Insulin) levothyroxine 50 mcg tablet 50 mcg PO DAILY 11/05/23 Unknown History (Unithroid) prednisone 10 mg tablet 10 mg PO DAILY 11/05/23 Unknown History rosuvastatin 5 mg tablet 5 mg PO DAILY 11/05/23 Unknown History tezepelumab-ekko 210 mg/1.91 mL 210 mg subcut Q4W 11/05/23 Unknown History (110 mg/mL) subcutaneous pen injector (Tezspire) tiotropium bromide 2.5 2 puff inhalation DAILY 11/05/23 Unknown History mcg/actuation mist for inhalation (Spiriva Respimat) tizanidine 2 mg capsule 2 mg PO Q8H PRN muscle spasticity 11/05/23 Unknown History fluticasone furoate 100 1 ea inhalation 06/03/24 Unknown History mcg-vilanterol 25 mcg/dose inhalation powder (Breo Ellipta) potassium chloride 10 mEq 10 meq PO DAILY 06/03/24 Unknown History tablet,extended release ropinirole 1 mg tablet 1 mg PO 06/03/24 Unknown History solifenacin 5 mg tablet 5 mg PO DAILY 06/03/24 Unknown History tramadol 50 mg tablet 50 mg PO TID PRN PRN pain 06/03/24 Unknown History Allergy/AdvReac Type Severity Reaction Status Date / Time doxycycline Allergy Severe Nausea/Vom/ Verified 06/03/24 04:12 Diarrhea montelukast (From Singulair) Allergy Severe Other Verified 06/03/24 04:12 lubricant Allergy Mild Itching Verified 06/03/24 04:12 adhesive tape AdvReac Mild Rash Verified 06/03/24 04:12 Surgical History History of ankle surgery Social History Smoking Status: Never smoker ROS ROS ED ROS Narrative Watery diarrhea multiple episodes. No vomiting or fever. No abdominal pain. Constitutional Constitutional ED: Denies chills or fever(s) ENT ENT ED: Denies ear pain Cardiovascular Cardiovascular: Denies chest pain Respiratory/Chest Respiratory/Chest: Denies cough or dyspnea Gastrointestinal Gastrointestinal: Reports diarrhea; Denies abdominal pain, constipation, melena, nausea or vomiting Genitourinary Genitourinary ED: Denies dysuria or hematuria Musculoskeletal Musculoskeletal: Denies arthralgias Integumentary Denies abscess Neurologic Neurologic: Denies headache(s) Endocrine Endocrinology: Denies polydipsia Hematologic/Lymphatic Hematologic/Lymphatic: Denies easy bleeding Allergic/Immunologic Allergic/Immunologic ED: Denies mouth swelling EXAM Physical Exam Narrative Exam Narrative: Well-appearing 43-year-old female. Vital signs are stable. She is afebrile. She does not look septic toxic. She has no distress. H EENT exam unremarkable. Mytrex members. Neck nontender JVD. Lungs clear to auscultation bilaterally. Heart regular rhythm rate about 110 no murmur. Chest wall ribs nontender. Abdomen soft nontender. No peritoneal signs. No localizing tenderness. Moving all 4 extremities. Nontender no edema. Back nontender. She is awake and alert no focal motor deficits. Const Vital Signs: 06/03/24 04:06 06/03/24 04:10 06/03/24 06:06 Temperature 98.9 F 98.9 F Temperature Source Oral Temporal Pulse Rate 113 H 113 H 98 Respiratory Rate 18 18 16 Blood Pressure 165/78 H 165/78 H 180/74 H Blood Pressure Mean 107 107 109 Pulse Ox 95 95 98 Oxygen Delivery Method Room Air Room Air Room Air 06/03/24 06:55 Temperature 98.1 F Temperature Source Pulse Rate 86 Respiratory Rate 15 Blood Pressure 137/84 H Blood Pressure Mean 101 Pulse Ox 95 Oxygen Delivery Method Positive well nourished and well developed; Negative for cachectic, contractures or unkempt General Appearance ED: well developed and NAD; Negative for unkempt, cachectic, contractures or pallor Nutritional Appearance: Negative for cachectic HEENT Reports moist mucous membranes normocephalic and atraumatic Eyes PERRL and EOMs intact bilaterally General Eye ED: Negative for pale conjunctiva Neck no lymphadenopathy, supple and no JVD Resp clear to auscultation bilaterally Cardio regular rhythm, S1 normal heart sound, S2 normal heart sound and no murmurs; Negative for regular rate Rate: tachycardic GI non-tender, non-distended and no masses Inspection: Negative for abdominal distention Auscultation: Negative for normoactive bowel sounds Palpation: soft; Negative for tender, guarding, hernia, mass or rebound tenderness present Back/Spine no CVA tenderness Extremity full ROM General Extremety ED: Negative for edema or tenderness General Extremity: Negative for edema Neuro CN's II-XII intact bilaterally and moves all extremities Sensorium / Orientation: alert, oriented to person, oriented to place and oriented to time; Negative for orientation impaired Motor Exam: strength 5/5 throughout Psych mental status grossly normal and thought process normal Appearance: Negative for unkempt Mood & Affect: Negative for depressed, anxious or tearful Skin no wounds General Skin Exam: Negative for jaundice or pallor Lesions: no lesions Rashes: no rashes MDM MDM MDM Narrative Medical decision making narrative: 43-year-old diabetic female with multiple episodes of diarrhea since yesterday. Its watery brown stool. No gross blood. She is been on recent antibiotics for cellulitis and has been on several episodes antibiotics over the last several months. She be treated with IV fluids. Screening labs. C. difficile will be obtained. Clinically she looks well. She does not look septic or toxic. She does not look significantly dehydrated. Repeat exam patient is doing well at 60 3 AM. I do not believe she has had any diarrhea the entire time she has been in the emergency department. C. difficile negative. Labs otherwise are unremarkable other than mild hypokalemia at 3.0. Increase fluids. If diarrhea persist for 24-48 more hours start Imodium. If it persist follow-up for reevaluation. Return if worse. History & Record Review Discussion w/independent historian: Patient Additional record(s) reviewed:: Prior inpatient record, Prior outpatient record, Prior ED visit and Prior labs Lab Data Attestation: I reviewed the patient's lab results. Lab results narrative: CBC shows white count 13. H&H 14.6 and 44. Platelets 356. Electrolytes show sodium 134. Potassium 3.0. Gap 11. Normal BUN of 18 creatinine 0.79. Glucose 286. Stool test for C. difficile was negative. Labs: Laboratory Results - last 24 hr 06/03/24 04:20 WBC 13.0 H RBC 5.01 Hgb 14.6 Hct 44.2 MCV 88.2 MCH 29.1 MCHC 33.0 RDW Std Deviation 44.1 H RDW Coeff of [place] 13.8 Plt Count 356 MPV 10.5 Immature Gran % (Auto) 0.600 Neut % (Auto) 78.2 H Lymph % (Auto) 15.4 L [place] % (Auto) 4.9 Eos % (Auto) 0.6 Baso % (Auto) 0.3 Absolute Neuts (auto) 10.2 H Absolute Lymphs (auto) 2.01 Nucleated RBC % 0 Sodium 134 L Potassium 3.0 L Chloride 94 L Carbon Dioxide 29.0 Anion Gap 11 BUN 18 Creatinine 0.79 Estim Creat Clear Calc 140.16 Est GFR (MDRD) Af Amer 102 Est GFR (MDRD) Non-Af 84 BUN/Creatinine Ratio 22.8 H Glucose 286 H Calcium 10.2 H Discharge Plan Triage Chief Complaint: Diarrhea ED Provider: Sacha Reynolds Dx/Rx/DC Orders Clinical Impression: Diarrhea, History of diabetes mellitus, History of cellulitis Instructions: ED Diarrhea, Unknown Cause Prescriptions: No Action dexlansoprazole [Dexilant] 60 mg capsule,biphase delayed releas 60 mg PO DAILY prednisone 10 mg tablet 10 mg PO DAILY Spiriva Respimat 2.5 mcg/actuation mist 2 puff inhalation DAILY amlodipine 5 mg tablet 5 mg PO DAILY Hizentra 10 gram/50 mL (20 %) solution 8,000 mg subcut QWEEK Patient Comments: pt currently does not have med Humalog KwikPen Insulin 200 unit/mL (3 mL) insulin pen 20 unit subcut DAILY Tezspire 210 mg/1.91 mL (110 mg/mL) pen injector 210 mg subcut Q4W levothyroxine [Unithroid] 50 mcg tablet 50 mcg PO DAILY gabapentin 100 mg capsule 1,200 mg PO DAILY rosuvastatin 5 mg tablet 5 mg PO DAILY Zyrtec 10 mg capsule 10 mg PO DAILY PRN (Reason: allergy symptoms) azelastine 205.5 mcg (0.15 %) spray,non-aerosol 1 spray intranasal BID Rx Instructions: administer into each nostril buspirone 30 mg tablet 30 mg PO BID chlorthalidone 15 mg tablet 15 mg PO DAILY tizanidine 2 mg capsule 2 mg PO Q8H PRN (Reason: muscle spasticity) ropinirole 1 mg tablet 1 mg PO potassium chloride 10 mEq tablet extended release 10 meq PO DAILY tramadol 50 mg tablet 50 mg PO TID PRN PRN (Reason: pain) solifenacin 5 mg tablet 5 mg PO DAILY fluticasone furoate-vilanterol [Breo Ellipta] 100-25 mcg/dose blister with device 1 ea INHALATION Primary Care Provider: Cori Kruse Referrals: Cori Kruse MD [Primary Care Provider] - 3-5 Days if not improving Activity Restrictions/Additional Instructions: Your labs look good. Plenty of fluids and rest. Slowly increase your diet as tolerated. This may last another 24 to 48 hours. If it persists after 24 hours she can start using Imodium for the diarrhea. Follow-up with your doctor if not improving. Your C. difficile test tonight was negative. If the diarrhea continues that may need to be rechecked or do a full stool culture panel. Stools. Print Language: Macedonian Disposition Disposition: Home, Self Care
[2024-06-03] MEDS: 0.9% Normal Saline (1000mL) 1,000 ML 999 ML IV (05:04)
[2024-06-03 05:13] LABS: Absolute Lymphocyte Count 2.01 X10^3/uL (0.83-4.51); Absolute Neutrophil Count 10.2 X10^3/uL (2.0-7.7); Basophil# 0.04 X10^3/uL; Basophil% 0.3 % (0-1); Eosinophil# 0.08 X10^3/uL; Eosinophils% 0.6 % (0-5); Hematocrit 44.2 % (37-47); Hemoglobin 14.6 g/dL (12.0-15.0); Lymphocyte # 2.01 X10^3/ul (0.83-4.51); Lymphocyte % 15.4 % (19-41); Mean Corpuscular Hgb 29.1 pg (27.0-32.0); Mean Corpuscular Volume 88.2 fL (81-99); Mean Platelet Vol. 10.5 fl (6.2-12.0); Monocyte# 0.64 X10^3/uL; Monocyte% 4.9 % (0-10); NRBC Flagged by Analyzer 0 % (0-5); Neutrophil # 10.16 X10^3/uL (2.7-7.7); Neutrophil % 78.2 % (47-70); Platelet Count 356 K/mm3 (150-450); RBC Distribution Width CV 13.8 % (11.6-14.6); RBC Distribution Width SD 44.1 fl (35.1-43.9); Red Blood Count 5.01 M/mm3 (4.2-5.4)
[2024-06-03 05:26] LABS: Anion Gap 11 (5-15); BUN 18 mg/dL (7-18); BUN/Creat Ratio 22.8 RATIO (10-20); Calcium,Total 10.2 mg/dL (8.5-10.1); Chloride 94 mmol/L (98-107); Creatinine, Serum 0.79 mg/dL (0.55-1.02); EST Glomerular Filtration Rate 84 mL/min (>60); Est Glom Filt Rate - Afr Amer 102 mL/min (>60); Estimated Creatinine Clearance 140.16 ml/min; Glucose 286 mg/dL (74-106); Sodium Level 134 mmol/L (136-145)
[2024-06-03 06:06] VITALS: BP 180/74; PULSE 98; RESP 16; O2SAT 98
[2024-06-03 06:55] VITALS: BP 137/84; PULSE 86; RESP 15; TEMP 36.7; O2SAT 95
== END 2024-06-03 07:01 | disposition home or self-care (01) ==
PROVIDERS: Emergency Provider Emergency Medicine; PCP Family Medicine; Visit Provider Emergency Medicine
DX: R19.7 Diarrhea, unspecified (principal); E11.40 Type 2 diabetes mellitus with diabetic neuropathy, unspecified; Z79.4 Long term (current) use of insulin; I10 Essential (primary) hypertension; E78.00 Pure hypercholesterolemia, unspecified; Z79.899 Other long term (current) drug therapy; Z87.2 Personal history of diseases of the skin and subcutaneous tissue
CPT/HCPCS: 80048; 85025; 87493; 96360; 96361; 99283; A4216

== ENCOUNTER 2024-07-09 06:24 | Day surgery (SDC) | payer MEDICARE, SELFPAY ==
--- NOTE | 2024-07-07 16:45 | PAT.ANE_ITS ---
Pre-Assessment Diagnosis/Proposed Procedure Planned Operative Procedure(s): EGD Anesthesia History Anesthesia History - petal cutter: Anesthesia History - petal cutter Hx Hospitalization Yes: 10/23, CELLULITIS 07/07/24 15:28 Any Problems With Anesthesia No 07/07/24 15:28 Cholinesterase deficiency No 07/07/24 15:28 You/Your Family Experience No 07/07/24 15:28 fever (hyperthermia) with Relationship Recent Exposure to Contagious Disease Does patient have nerve No 07/07/24 15:28 stimulator Patient instructed to have device shut off --Does patient have Pacemaker or ICD? When Was Last Pacemaker Check QUESTION #4 FULL TEXT: You/Your Family Experience fever (hyperthermia) with Anesthesia Last Oral Intake Last Oral intake: Last Oral Intake NPO since Meds taken in AM with sips of water? Meds patient instructed to take am of surgery PONV PONV - petal cutter: PONV - petal cutter Female Yes 07/07/24 15:28 HX of Motion Sickness Yes 07/07/24 15:28 HX of N/V After Surgery No 07/07/24 15:28 Non-Smoker Yes 07/07/24 15:28 Duration of Surgery greater No 07/07/24 15:28 than 60 minutes Number of Risk Factors 3 07/07/24 15:28 PONV Score Moderate Risk 07/07/24 15:28 Height & Weight Height & Weight: Anesthesia: Height & Weight Height 5 ft 6 in 06/30/24 14:14 Respiratory Assessment Respiratory Assessment - petal cutter: Respiratory Tract Infection Hx - petal cutter Hx Respiratory Tract Infection Yes: FINISHING ATB 07/0907/07/24 15:28 STOP Sleep Apnea STOP Sleep Apnea - petal cutter: STOP Sleep Apnea - petal cutter Hx Hypertension Yes: CONTROLLED WITH MEDS 07/07/24 15:28 Hx Sleep Apnea Yes 07/07/24 15:28 CPAP No 07/07/24 15:28 BIPAP No 07/07/24 15:28 Do you snore loudly (louder than talking or can be heard Do you often feel tired/ fatigued/ sleepy during daytime? Has anyone observed you stop breathing during sleep? STOP Results Positive 07/07/24 15:28 QUESTION #5 FULL TEXT : Do you snore loudly (louder than talking or can be heard through closed doors)? 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 Specify any problems Hx of Preganancy in last 3 No 07/07/24 15:28 Months Nurse Filling Out Transfusion [email or web address] 07/07/24 15:28 & Questions: Date: 07/07/24 07/07/24 15:28 Time: 15:32 07/07/24 15:28 Patient unable to answer at this time (ie. confused, unrespo /Reproduction History /Reproductive History - petal cutter: /Reproductive Hx- petal cutter Hx Now No 07/07/24 15:28 Gestational Age (in weeks): EDC: Hx Hx Para Hx Section SAB No 07/07/24 15:28 [facility] Medical History (Updated 07/07/24 @ 15:37 by Chandler Smith) Wears glasses Marijuana use Fatty liver High cholesterol Boil Back pain Diabetic nephropathy Type 1 diabetes History of pain when walking Leg cramps History of edema Cardiology follow-up encounter Celiac disease GERD (gastroesophageal reflux disease) TMJ syndrome Diabetic neuropathy Osteoarthritis Fibromyalgia History of TMJ disorder PTSD (post-traumatic stress disorder) Depression Anxiety History of kidney stones Hypothyroid Hypercholesteremia Hypertension Diabetes Asthma Home Medications ?Medication ?Instructions ?Recorded ?Last Taken ?Type amlodipine 5 mg tablet 5 mg PO DAILY 11/05/23 Unknown History azelastine 205.5 mcg (0.15 %) 1 spray intranasal BID PRN sinus 11/05/23 Unknown History nasal spray symptoms buspirone 30 mg tablet 30 mg PO BID 11/05/23 Unknown History cetirizine 10 mg capsule (Zyrtec) 10 mg PO DAILY allergy symptoms 11/05/23 Unknown History chlorthalidone 15 mg tablet 15 mg PO DAILY 11/05/23 Unknown History insulin lispro 200 unit/mL (3 mL) 20 unit subcut DAILY 11/05/23 Unknown History subcutaneous pen (Humalog KwikPen U-200 Insulin) levothyroxine 50 mcg tablet 50 mcg PO DAILY 11/05/23 Unknown History (Unithroid) prednisone 10 mg tablet 10 mg PO DAILY 11/05/23 Unknown History rosuvastatin 5 mg tablet 5 mg PO DAILY 11/05/23 Unknown History tiotropium bromide 2.5 2 puff inhalation DAILY 11/05/23 Unknown History mcg/actuation mist for inhalation (Spiriva Respimat) tizanidine 2 mg capsule 2 mg PO BID PRN muscle spasticity 11/05/23 Unknown History fluticasone furoate 100 1 inh inhalation DAILY 06/03/24 Unknown History mcg-vilanterol 25 mcg/dose inhalation powder (Breo Ellipta) potassium chloride 10 mEq 10 meq PO DAILY 06/03/24 Unknown History tablet,extended release ropinirole 1 mg tablet 1 mg PO BID 06/03/24 Unknown History levomefolate calcium 15 mg tablet 15 mg PO QDAY 06/11/24 Unknown History clindamycin HCl 300 mg capsule 300 mg PO TID 07/07/24 Unknown History furosemide 20 mg tablet 20 mg PO MOWEFR 07/07/24 Unknown History gabapentin 600 mg tablet 1,200 mg PO BID 07/07/24 Unknown History levalbuterol tartrate 45 1 - 2 puff inhalation Q4H PRN PRN 07/07/24 Unknown History mcg/actuation aerosol inhaler wheezing pantoprazole 40 mg tablet,delayed 40 mg PO QHS 07/07/24 Unknown History release paroxetine HCl 40 mg tablet 40 mg PO DAILY 07/07/24 Unknown History vit no.133-ferrous 1 tab PO DAILY 07/07/24 Unknown History fumarate 28 mg-folic acid 800 mcg tablet () Allergy/AdvReac Type Severity Reaction Status Date / Time doxycycline Allergy Severe Nausea/Vom/ Verified 07/07/24 15:16 Diarrhea montelukast (From Singulair) Allergy Severe Other Verified 07/07/24 15:16 lubricant Allergy Mild Itching Verified 07/07/24 15:16 adhesive tape AdvReac Mild Rash Verified 07/07/24 15:16 Surgical History History of surgery on right wrist S/P nasal septoplasty S/P wisdom tooth extraction History of mandibular surgery History of ankle surgery Social History Smoking Status: Never smoker alcohol intake: never Recommendation Anesthesia Recommendation Anesthesia recommendation: F/U recommended (Repeat potassium on day of surgery. Patient should double up her potassium today.)
--- NOTE | 2024-07-08 17:43 | PAT.ANE_ITS ---
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 When Was Last Pacemaker Check QUESTION #4 FULL TEXT: You/Your Family Experience fever (hyperthermia) with Anesthesia Last Oral Intake Last Oral intake: Last Oral Intake NPO since Meds taken in AM with sips of water? 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 Female Yes 07/07/24 15:28 HX of Motion Sickness Yes 07/07/24 15:28 HX of N/V After Surgery No 07/07/24 15:28 Non-Smoker Yes 07/07/24 15:28 Duration of Surgery greater No 07/07/24 15:28 than 60 minutes Number of Risk Factors 3 07/07/24 15:28 PONV Score Moderate Risk 07/07/24 15:28 Height & Weight Height & Weight: Anesthesia: Height & Weight Height 5 ft 6 in 06/30/24 14:14 Respiratory Assessment Respiratory Assessment - nut sorter operator: Respiratory Tract Infection Hx - nut sorter operator Hx Respiratory Tract Infection Yes: FINISHING ATB 07/0907/07/24 15:28 STOP Sleep Apnea STOP Sleep Apnea - nut sorter operator: STOP Sleep Apnea - nut sorter operator Hx Hypertension Yes: CONTROLLED WITH MEDS 07/07/24 15:28 Hx Sleep Apnea Yes 07/07/24 15:28 CPAP No 07/07/24 15:28 BIPAP No 07/07/24 15:28 Do you snore loudly (louder than talking or can be heard Do you often feel tired/ fatigued/ sleepy during daytime? Has anyone observed you stop breathing during sleep? STOP Results Positive 07/07/24 15:28 QUESTION #5 FULL TEXT : Do you snore loudly (louder than talking or can be heard through closed doors)? 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 Specify any problems Hx of Preganancy in last 3 No 07/07/24 15:28 Months Nurse Filling Out Transfusion [email or web address] 07/07/24 15:28 & Questions: Date: 07/07/24 07/07/24 15:28 Time: 15:32 07/07/24 15:28 Patient unable to answer at this time (ie. confused, unrespo /Reproduction History /Reproductive History - nut sorter operator: /Reproductive Hx- nut sorter operator Hx Now No 07/07/24 15:28 Gestational Age (in weeks): EDC: Hx Hx Para Hx Section SAB No 07/07/24 15:28 [facility] Medical History (Updated 07/07/24 @ 15:37 by Chandler Smith) Wears glasses Marijuana use Fatty liver High cholesterol Boil Back pain Diabetic nephropathy Type 1 diabetes History of pain when walking Leg cramps History of edema Cardiology follow-up encounter Celiac disease GERD (gastroesophageal reflux disease) TMJ syndrome Diabetic neuropathy Osteoarthritis Fibromyalgia History of TMJ disorder PTSD (post-traumatic stress disorder) Depression Anxiety History of kidney stones Hypothyroid Hypercholesteremia Hypertension Diabetes Asthma Home Medications ?Medication ?Instructions ?Recorded ?Last Taken ?Type amlodipine 5 mg tablet 5 mg PO DAILY 11/05/23 Unknown History azelastine 205.5 mcg (0.15 %) 1 spray intranasal BID PRN sinus 11/05/23 Unknown History nasal spray symptoms buspirone 30 mg tablet 30 mg PO BID 11/05/23 Unknown History cetirizine 10 mg capsule (Zyrtec) 10 mg PO DAILY allergy symptoms 11/05/23 Unknown History chlorthalidone 15 mg tablet 15 mg PO DAILY 11/05/23 Unknown History insulin lispro 200 unit/mL (3 mL) 20 unit subcut DAILY 11/05/23 Unknown History subcutaneous pen (Humalog KwikPen U-200 Insulin) levothyroxine 50 mcg tablet 50 mcg PO DAILY 11/05/23 Unknown History (Unithroid) prednisone 10 mg tablet 10 mg PO DAILY 11/05/23 Unknown History rosuvastatin 5 mg tablet 5 mg PO DAILY 11/05/23 Unknown History tiotropium bromide 2.5 2 puff inhalation DAILY 11/05/23 Unknown History mcg/actuation mist for inhalation (Spiriva Respimat) tizanidine 2 mg capsule 2 mg PO BID PRN muscle spasticity 11/05/23 Unknown History fluticasone furoate 100 1 inh inhalation DAILY 06/03/24 Unknown History mcg-vilanterol 25 mcg/dose inhalation powder (Breo Ellipta) potassium chloride 10 mEq 10 meq PO DAILY 06/03/24 Unknown History tablet,extended release ropinirole 1 mg tablet 1 mg PO BID 06/03/24 Unknown History levomefolate calcium 15 mg tablet 15 mg PO QDAY 06/11/24 Unknown History clindamycin HCl 300 mg capsule 300 mg PO TID 07/07/24 Unknown History furosemide 20 mg tablet 20 mg PO MOWEFR 07/07/24 Unknown History gabapentin 600 mg tablet 1,200 mg PO BID 07/07/24 Unknown History levalbuterol tartrate 45 1 - 2 puff inhalation Q4H PRN PRN 07/07/24 Unknown History mcg/actuation aerosol inhaler wheezing pantoprazole 40 mg tablet,delayed 40 mg PO QHS 07/07/24 Unknown History release paroxetine HCl 40 mg tablet 40 mg PO DAILY 07/07/24 Unknown History vit no.133-ferrous 1 tab PO DAILY 07/07/24 Unknown History fumarate 28 mg-folic acid 800 mcg tablet () Allergy/AdvReac Type Severity Reaction Status Date / Time doxycycline Allergy Severe Nausea/Vom/ Verified 07/07/24 15:16 Diarrhea montelukast (From Singulair) Allergy Severe Other Verified 07/07/24 15:16 lubricant Allergy Mild Itching Verified 07/07/24 15:16 adhesive tape AdvReac Mild Rash Verified 07/07/24 15:16 Surgical History History of surgery on right wrist S/P nasal septoplasty S/P wisdom tooth extraction History of mandibular surgery History of ankle surgery Social History Smoking Status: Never smoker alcohol intake: never Recommendation Anesthesia Recommendation Anesthesia recommendation: OPTIMIZED for anesthesia
[2024-07-09] VITALS (8 sets, daily range): BP systolic 108–134; BP diastolic 53–71; PULSE 88–95; RESP 18; TEMP 36.4–37.1; O2SAT 95–99; BMI 53.7
[2024-07-09 06:44] LABS: Internal QC Validated? YES +Cl - CLEAR BKGD; Pregnancy, Urine Negative Negative
--- NOTE | 2024-07-09 07:23 | PRE.ANES_ITS ---
ASA Classification* ASA Classification ASA Classification: 3 Assessment & Plan Anesthesia* Anesthesia Assessment Anesthesia Assessment: Discussed sedation and/or anesthesia options, risks, benefits, and alternatives with patient/parents/legal guardian/POA. Questions invited. The patient/parents/legal guardian/POA seems to understand and agrees to proceed with anesthesia plan. Reviewed the physical assessment, medical history, allergy history and patient home medications list prior to surgery/procedure/anesthetic and documented any changes. Performed airway and anesthesia risk assessments. Anesthesia Type Anesthesia Type: MAC Anesthesia Focused Assessment* Temperature: 97.5 F Pulse Rate: 95 Blood Pressure: 134/71 Respiratory Rate: 18 Pulse Ox: 95 Airway Assessment Mouth opens: >3 cm Mallampati Score: II Focused Labs Anesthesia Preop lab: CBC WBC 13.0 K/mm3 (4.4-11.0) H 06/03/24 04:20 RBC 5.01 M/mm3 (4.2-5.4) 06/03/24 04:20 Hgb 14.6 g/dL (12.0-15.0) 06/03/24 04:20 Hct 44.2 % (37-47) 06/03/24 04:20 Plt Count 356 K/mm3 (150-450) 06/03/24 04:20 CHEMISTRY Potassium 3.0 mmol/L (3.5-5.1) L 06/03/24 04:20 Sodium 134 mmol/L (136-145) L 06/03/24 04:20 Magnesium 2.1 mg/dL (1.6-2.6) 01/29/24 09:46 BUN 18 mg/dL (7-18) 06/03/24 04:20 Creatinine 0.79 mg/dL (0.55-1.02) 06/03/24 04:20 Glucose 286 mg/dL (74-106) H 06/03/24 04:20 POC Glucose 309 mg/dL (74-106) H 11/20/23 23:11 COAG Urine Test Negative Negative 07/09/24 06:35 Pre-Assessment Diagnosis/Proposed Procedure Planned Operative Procedure(s): EGD Anesthesia History 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 When Was Last Pacemaker Check QUESTION #4 FULL TEXT: You/Your Family Experience fever (hyperthermia) with Anesthesia Last Oral Intake Last Oral intake: Last Oral Intake NPO since 03:30 07/09/24 07:04 Meds taken in AM with sips of water? Meds patient instructed to take am of surgery PONV PONV - leather polisher: PONV - leather polisher Female Yes 07/07/24 15:28 HX of Motion Sickness Yes 07/07/24 15:28 HX of N/V After Surgery No 07/07/24 15:28 Non-Smoker Yes 07/07/24 15:28 Duration of Surgery greater No 07/07/24 15:28 than 60 minutes Number of Risk Factors 3 07/07/24 15:28 PONV Score Moderate Risk 07/07/24 15:28 Height & Weight Height & Weight: Anesthesia: Height & Weight Height 5 ft 6 in 07/09/24 07:04 Weight: 151 kg 07/09/24 07:04 Body Mass Index (BMI) 53.7 07/09/24 07:04 Respiratory Assessment Respiratory Assessment - leather polisher: Respiratory Tract Infection Hx - leather polisher Hx Respiratory Tract Infection Yes: FINISHING ATB 07/0907/07/24 15:28 STOP Sleep Apnea STOP Sleep Apnea - leather polisher: STOP Sleep Apnea - leather polisher Hx Hypertension Yes: CONTROLLED WITH MEDS 07/07/24 15:28 Hx Sleep Apnea Yes 07/07/24 15:28 CPAP No 07/07/24 15:28 BIPAP No 07/07/24 15:28 Do you snore loudly (louder than talking or can be heard Do you often feel tired/ fatigued/ sleepy during daytime? Has anyone observed you stop breathing during sleep? STOP Results Positive 07/07/24 15:28 QUESTION #5 FULL TEXT : Do you snore loudly (louder than talking or can be heard through closed doors)? 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 Specify any problems Hx of Preganancy in last 3 No 07/07/24 15:28 Months Nurse Filling Out Transfusion [email or web address] 07/07/24 15:28 & Questions: Date: 07/07/24 07/07/24 15:28 Time: 15:32 07/07/24 15:28 Patient unable to answer at this time (ie. confused, unrespo /Reproduction History /Reproductive History - leather polisher: /Reproductive Hx- leather polisher Hx Now No 07/07/24 15:28 Gestational Age (in weeks): EDC: Hx Hx Para Hx Section SAB No 07/07/24 15:28 [facility] Medical History Wears glasses Marijuana use Fatty liver High cholesterol Boil Back pain Diabetic nephropathy Type 1 diabetes History of pain when walking Leg cramps History of edema Cardiology follow-up encounter Celiac disease GERD (gastroesophageal reflux disease) TMJ syndrome Diabetic neuropathy Osteoarthritis Fibromyalgia History of TMJ disorder PTSD (post-traumatic stress disorder) Depression Anxiety History of kidney stones Hypothyroid Hypercholesteremia Hypertension Diabetes Asthma Home Medications ?Medication ?Instructions ?Recorded ?Last Taken ?Type amlodipine 5 mg tablet 5 mg PO DAILY 11/05/23 07/09/24 History azelastine 205.5 mcg (0.15 %) 1 spray intranasal BID PRN sinus 11/05/23 Unknown History nasal spray symptoms buspirone 30 mg tablet 30 mg PO BID 11/05/23 07/09/24 History cetirizine 10 mg capsule (Zyrtec) 10 mg PO DAILY allergy symptoms 11/05/23 07/09/24 History chlorthalidone 15 mg tablet 15 mg PO DAILY 11/05/23 07/08/24 History insulin lispro 200 unit/mL (3 mL) 20 unit subcut DAILY 11/05/23 Unknown History subcutaneous pen (Humalog KwikPen U-200 Insulin) levothyroxine 50 mcg tablet 50 mcg PO DAILY 11/05/23 07/09/24 History (Unithroid) prednisone 10 mg tablet 10 mg PO DAILY 11/05/23 07/08/24 History rosuvastatin 5 mg tablet 5 mg PO DAILY 11/05/23 07/08/24 History tiotropium bromide 2.5 2 puff inhalation DAILY 11/05/23 07/09/24 History mcg/actuation mist for inhalation (Spiriva Respimat) tizanidine 2 mg capsule 2 mg PO BID PRN muscle spasticity 11/05/23 07/08/24 History fluticasone furoate 100 1 inh inhalation DAILY 06/03/24 07/09/24 History mcg-vilanterol 25 mcg/dose inhalation powder (Breo Ellipta) potassium chloride 10 mEq 10 meq PO DAILY 06/03/24 07/08/24 History tablet,extended release ropinirole 1 mg tablet 1 mg PO BID 06/03/24 07/09/24 History levomefolate calcium 15 mg tablet 15 mg PO QDAY 06/11/24 07/08/24 History clindamycin HCl 300 mg capsule 300 mg PO TID 07/07/24 07/08/24 History furosemide 20 mg tablet 20 mg PO MOWEFR 07/07/24 07/07/24 History gabapentin 600 mg tablet 1,200 mg PO BID 07/07/24 07/09/24 History levalbuterol tartrate 45 1 - 2 puff inhalation Q4H PRN PRN 07/07/24 07/08/24 History mcg/actuation aerosol inhaler wheezing pantoprazole 40 mg tablet,delayed 40 mg PO QHS 07/07/24 07/08/24 History release paroxetine HCl 40 mg tablet 40 mg PO DAILY 07/07/24 07/08/24 History vit no.133-ferrous 1 tab PO DAILY 07/07/24 07/08/24 History fumarate 28 mg-folic acid 800 mcg tablet () Allergy/AdvReac Type Severity Reaction Status Date / Time doxycycline Allergy Severe Nausea/Vom/ Verified 07/09/24 07:02 Diarrhea montelukast (From Singulair) Allergy Severe Other Verified 07/09/24 07:02 lubricant Allergy Mild Itching Verified 07/09/24 07:02 adhesive tape AdvReac Mild Rash Verified 07/09/24 07:02 Surgical History History of surgery on right wrist S/P nasal septoplasty S/P wisdom tooth extraction History of mandibular surgery History of ankle surgery Social History Smoking Status: Never smoker alcohol intake: never Review of Systems (Anesthesia) ROS Narrative System reviewed and no additional complaints, except as documented.
--- NOTE | 2024-07-09 07:31 | PCM.HP.BLA ---
History and Physical Date of Admission: 07/09/24 Date of Service: 06/30/24 MR#: [id number] Acct: [id number] Name: DARINEL COPELAND Rep #: [id number] : 1980 Provider: Dr. Nicole Peterson MD Age/Sex: 43/F Location: [facility] Status: Signed Intake Vital Signs 06/03/2404:06 06/30/2414:14 Height 5 ft 6 in 5 ft 6 in Weight: 334 lb BMI 53.8 BP 142/83 H Blood Pressure Location Rt brachial Position Sitting Respiration 16 Intake Visit Reasons: EGD- GERD Chief Complaint: EGD [employer] Required: No Is patient in pain?: No Allergies doxycycline Allergy (Severe, Verified 06/30/24 14:15) Nausea/Vom/Diarrheamontelukast (From Singulair) Allergy (Severe, Verified 06/30/24 14:15) Otherlubricant Allergy (Mild, Verified 06/30/24 14:15) Itchingadhesive tape Adverse Reaction (Mild, Verified 06/30/24 14:15) Rash Medications ?Medication ?Instructions ?Recorded ?Confirmed ?Type amlodipine 5 mg tablet 5 mg PO DAILY 11/05/23 06/30/24 History azelastine 205.5 mcg (0.15 %) 1 spray intranasal BID 11/05/23 06/30/24 History nasal spray buspirone 30 mg tablet 30 mg PO BID 11/05/23 06/30/24 History cetirizine 10 mg capsule (Zyrtec) 10 mg PO DAILY PRN allergy symptoms 11/05/23 06/30/24 History chlorthalidone 15 mg tablet 15 mg PO DAILY 11/05/23 06/30/24 History gabapentin 100 mg capsule 1,200 mg PO DAILY 11/05/23 06/30/24 History immun glob G 10 gram/50 mL(20 8,000 mg subcut QWEEK 11/05/23 06/30/24 History %)-pro-IgA 0-50 mcg/mL subcutaneous soln (Hizentra) insulin lispro 200 unit/mL (3 mL) 20 unit subcut DAILY 11/05/23 06/30/24 History subcutaneous pen (Humalog KwikPen U-200 Insulin) levothyroxine 50 mcg tablet 50 mcg PO DAILY 11/05/23 06/30/24 History (Unithroid) prednisone 10 mg tablet 10 mg PO DAILY 11/05/23 06/30/24 History rosuvastatin 5 mg tablet 5 mg PO DAILY 11/05/23 06/30/24 History tezepelumab-ekko 210 mg/1.91 mL 210 mg subcut Q4W 11/05/23 06/30/24 History (110 mg/mL) subcutaneous pen injector (Tezspire) tiotropium bromide 2.5 2 puff inhalation DAILY 11/05/23 06/30/24 History mcg/actuation mist for inhalation (Spiriva Respimat) tizanidine 2 mg capsule 2 mg PO Q8H PRN muscle spasticity 11/05/23 06/30/24 History fluticasone furoate 100 1 ea inhalation 06/03/24 06/30/24 History mcg-vilanterol 25 mcg/dose inhalation powder (Breo Ellipta) potassium chloride 10 mEq 10 meq PO DAILY 06/03/24 06/30/24 History tablet,extended release ropinirole 1 mg tablet 1 mg PO 06/03/24 06/30/24 History solifenacin 5 mg tablet 5 mg PO DAILY 06/03/24 06/30/24 History levomefolate calcium 15 mg tablet 15 mg PO QDAY 06/11/24 06/30/24 History omeprazole 40 mg capsule,delayed 40 mg PO QDAY #90 caps 07/03/24 07/03/24 Rx release Have you fallen in the past year?: No PFSH Medical History (Updated 07/03/24 @ 11:[address] Nicole Peterson MD) Celiac disease GERD (gastroesophageal reflux disease) TMJ syndrome Diabetic neuropathy Osteoarthritis Fibromyalgia History of TMJ disorder PTSD (post-traumatic stress disorder) Depression Anxiety History of kidney stones Hypothyroid Hypercholesteremia Hypertension Diabetes Asthma Surgical History History of surgery on right wrist S/P nasal septoplasty S/P wisdom tooth extraction History of mandibular surgery History of ankle surgery Social History Smoking Status: Never smoker alcohol intake: never HPI HPI HPI: 43-year-old female presents for EGD due to GERD. Patient states that she was previously on Dexilant for the last 6 years however a week ago due to insurance no longer covering patient is currently on pantoprazole 40 mg p.o. daily. Patient does states she does take Pepcid as needed when needed about once a week. Patient has previously been on Nexium, omeprazole, Protonix prior to the Dexilant. Patient was diagnosed with celiac disease as well. Patient does have some constipation and diarrhea if she is has the constipation usually she is not able to go for about a day or so she takes the poppy drink which has prebiotic's which helps. Patient states she does have burning up her esophagus this can happen at midnight or in the morning before ever eating. Patient is currently on prednisone due to her asthma and has been for about the last 5 years prednisone 10 mg. Patient is also recently been on antibiotics 3 times for cellulitis in different locations previously this year. ROS General General: Yes weight change and fatigue; No appetite, colon cancer, breast cancer or weakness HEENT HEENT: Yes difficulty swallowing; No eye injury, eye surgery, swollen glands or hoarseness Endo Endocrine: Yes thyroid disease and diabetes mellitus; No thyroid cancer, Hair loss, heat intolerance or cold intolerance Skin Skin: Yes changing moles; No rash Breast Breast: No left breast lump, right breast lump, nipple discharge, breast pain, abnormal mammogram, abnormal US or breast enlargement Musc Musculoskeletal: Yes back problems and arthritis; No rheumatoid arthritis, gout or joint pain Cardio Cardiovascular: Yes high blood pressure; No murmur, pacemaker, heart disease, atrial fibrillation, heart attack, heart stent, palpitations, shortness of breat with exertion or chest pain Psych Psychiatric: Yes depression and anxiety; No hearing voices Resp Respiratory: Yes shortness of breath, Yes sleep apnea, Yes cough, No COPD, Yes asthma, No emphysema and No wheezing Gastro Gastrointestinal: No abdominal pain, No nausea or vomiting, Yes diarrhea, Yes constipation, No blood in stool, Yes acid reflux, Yes hemorrhoids, No ulcers, No gallbladder problem and No black,tarry stools Jamal Hematologic: No blood thinners, No blood disorders, No bleeding, Yes anemia and No blood clots Neuro Neurologic: No system reviewed and no additional complaints, except as documented, No as per HPI, No abnormal gait, No abnormal hearing, No abnormal movements, No abnormal speech, No behavioral changes, No burning sensations, No confusion, No convulsions, No disequilibrium, No dizziness, No localized weakness, No frequent falls, No headache(s), No lack of coordination, No loss of vision, No memory loss, Yes numbness, No other visual disturbances, No radicular pain, No restless legs, No sensory deficit, No syncope, Yes tingling, No tremor(s), No weakness and No other Exam Const General: cooperative, healthy appearing, comfortable and no acute distress [facility] Head: normocephalic and atraumatic Neck Neck: supple Resp Effort & Inspection: normal respiratory effort Cardio Rate: regular rate GI Inspection: non-distended Palpation: soft and nontender Skin General: no rashes or lesions noted Neuro General: CN's II-XI intact bilaterally Extrem General: normal to inspection Psych Mental Status: mental status grossly normal Attitude: cooperative Assessment and Plan Assessment and Plan (1) GERD (gastroesophageal reflux disease): Status: Acute (2) Celiac disease: Status: Acute Orders: Orders EGD 06/30/24 K21.9 - Gastro-esophageal reflux disease without esophagitis Medications: New omeprazole swallow whole; do not crush, chew, dissolve, cut, break 40 mg PO QDAY 90 caps 3RF Discontinued pantoprazole Discontinued Reason: Order Changed 40 mg PO QDAY Plan I have discussed the above with the patient. I have offered the patient esophagogastroduodenoscopy for evaluation. I have explained the risks/benefits of the procedure and described the procedure. I have discussed the risks with the patient, including but not limited to: infection, bleeding, perforation of the GI tract requiring emergency surgery, inability to complete the procedure, injury to any internal organs, complications of anesthesia, etc. - the patient understands and agrees to proceed. I have answered all the patient's questions to the patient's satisfaction and the patient has no further questions. Nicole Peterson M.D. Pager: [phone] [facility] [address] [place] [address], [address] [place] [address] Office: [phone] Coding Level of Care Code Off vis,new,level 3 Diagnoses GERD (gastroesophageal reflux disease) K21.9 Celiac disease K90.0 Clinical Quality Measures Falls Risk Screening/Assistive Devices Have you fallen in the past year?: No 07/03/24 1136 <Electronically signed by Nicole Peterson MD> Date Nicole Peterson MD
[2024-07-09 07:36] LABS: Bedside Glucose 250 mg/dL (74-106)
[2024-07-09 07:40] LABS: Potassium 3.2 mmol/L (3.5-5.1)
--- NOTE | 2024-07-09 08:00 | EGD_PTH ---
PATIENT: DARINEL COPELAND LOC: EN U#:[id number] AGE/SX: 43/F ROOM: RE07/09/[address]: Dr. Nicole Peterson MD : 1980 BED: DIS: 07/09/2024 SPEC #: [id number] RECD: 07/09/24 11:21 STATUS: LYLE NICOLE #: [id number] KAYLEEN: 07/09/24 08:[address]: Nicole Peterson DEPT: SURGICAL PATHOLOGY RECD BY: Ann Emmanuel ENTERED: 07/09/24 12:16 SP TYPE: EGD BIOPSY OTHR DR: Cori Kruse MD Tissues: A - Duodenum, NOS B - Gastric mucous membrane C - Gastric mucous membrane Procedures: Special Stain Group I Surgery Specimen Level IV Alcian Blue/PAS (control) HEADER OPERATION: EGD and biopsy PRE-OP DIAGNOSIS: Celiac disease and GERD TISSUE SUBMITTED: A- Duodenum biopsy, B- Antrum biopsy, C- Gastroesophageal junction biopsy MICROSCOPIC DIAGNOSIS A. Duodenum, biopsy: A fragment of duodenal mucosa with acute and chronic inflammation, villous blunting and flattening. B. Antrum, biopsy: A fragment of gastric mucosa with superficial erosion, acute and chronic inflammation and congestion. See comment. C. Gastroesophageal junction, biopsy: Fragments of gastroesophageal mucosa with chronic inflammation. Intestinal metaplasia (goblet cell metaplasia) not identified. See comment. 07/10/2024 COMMENT B. The results of immunohistochemistry for Helicobacter pylori will be reported separately ([id number]). C. Alcian blue/PAS stain with matched control is used in the evaluation of the specimen. MICROSCOPIC DESCRIPTION Slides are reviewed. GROSS DESCRIPTION A. Received in fixative is one container labeled with the patient's name and designated Duodenum biopsy. The specimen consists of one irregular fragment of light sanford soft tissue that measures 0.4 x 0.3 x 0.1 cm. The specimen is totally submitted in one cassette. B. Received in fixative is one container labeled with the patient's name and designated Antrum biopsy. The specimen consists of one irregular fragment of light sanford soft tissue that measures 0.5 x 0.3 x 0.1 cm. The specimen is totally submitted in one cassette. C. Received in fixative is one container labeled with the patient's name and designated GE junction biopsy. The specimen consists of two irregular fragments of light sanford soft tissue that measures 1.0 x 0.2 x 0.1 cm. The specimen is totally submitted in one cassette. SJ.mr 07/09/2024 TC:3 CPT:08827y3,61503
--- NOTE | 2024-07-09 08:00 | IMM_PTH ---
PATIENT: DARINEL COPELAND LOC: EN U#:[id number] AGE/SX: 43/F ROOM: RE07/09/[address]: Dr. Nicole Peterson MD : 1980 BED: DIS: 07/09/2024 SPEC #: [id number] RECD: 07/09/24 12:02 STATUS: LYLE NICOLE #: [id number] KAYLEEN: 07/09/24 08:[address]: Nicole Peterson DEPT: IMMUNOHISTOCHEMISTRY RECD BY: Andrzej Viveros ENTERED: 07/09/24 12:02 SP TYPE: IMMUNO OTHR DR: Cori Kruse MD Tissues: B - Gastric mucous membrane Procedures: H Pylori (initial) PHYSICIAN & INSTITUTION [place] [id number] SPECIMEN INFORMATION: Tissue Source: B- Antrum biopsy Clinical Info: Celiac disease and GERD Specimen Number: [id number] CPT code: 03792 METHODOLOGY: Deparaffinized sections of prefer/formalin-fixed tissue or PAP/DQ stained slides are incubated with monoclonal/polyclonal antibodies/oligonucleotide probes. Localization is made via biotin free immunoperoxidase method. Appropriate controls are performed and reacted as expected. Results on target cell population are indicated in the following table: RESULTS: ANTIBODY / CLONE RESULT Block B H Pylori (polyclonal) negative These tests were developed and their performance characteristics determined by [facility]. They may not have been cleared or approved by the U.S. Food and Drug Administration. The FDA has determined that such clearance or approval is not necessary. The above immunohistochemical/dualISH markers are ordered and reviewed by the Pathologist. INTERPRETATION: B. Antrum, biopsy: Negative for Helicobacter pylori organisms. 07/10/2024
--- NOTE | 2024-07-09 08:12 | PCM.POST.ANE ---
Anesthesia: Postop Eval I Current Vital Signs Temperature: 97.5 F Pulse Rate: 91 Blood Pressure: 108/53 Respiratory Rate: 18 Pulse Ox: 98 Oxygen Delivery Method: Room Air Assessment Airway patent: Yes Spontaneous unlabored respirations: Yes Mental status: Awake and Calm nausea: No Vomiting: No Anesthesia Complication: No Fluid Hydration Crystalloid volume administer (ml): 30 Total IV fluid infused: 30 Progress Note Anesthesia document: Postop Eval 1 completed: Yes
--- NOTE | 2024-07-09 08:13 | OP.CCLET_ITS ---
07/09/2024 Cori Kruse Md Re : Upper GI endoscopy procedure for Ellie Grant Dear Aixa This procedure was performed on Tuesday, July 09, 2024. My impressions and recommendations are as follows: Impressions : - Z-line irregular, 40 cm from the incisors. Biopsied. - Duodenal mucosal changes seen, consistent with celiac disease. Biopsied. - Erosive gastropathy with no stigmata of recent bleeding. Biopsied. Recommendations : - Await pathology results. - Use Prilosec (omeprazole) 40 mg PO BID for 1 month then daily. - Use sucralfate tablets 1 gram PO QID for 1 month. - Discharge patient to home. - Gluten free diet. - Continue present medications. My findings are described in the full procedure note, which is enclosed. If I can be of further assistance, please feel free to contact me at Doctor phone number(s): , Work: . Sincerely, MD Nicole Coombs MD 07/09/2024 8:12:23 AM This report has been signed electronically.
--- NOTE | 2024-07-09 08:13 | OP.EGD_ITS ---
Patient Name: Ellie Grant Procedure Date: 07/09/2024 7:41 AM Date of : 1980 Age: 43 Procedure: Upper GI endoscopy Indications: Heartburn, Celiac disease Providers: Nicole Peterson MD Referring MD: Nicole Peterson MD Medicines: Monitored Anesthesia Care Patient Profile: This is a 43 year old female. Complications: No immediate complications. Procedure: Pre-Anesthesia Assessment: - Prior to the procedure, a History and Physical was performed, and patient medications and allergies were reviewed. The patient's tolerance of previous anesthesia was also reviewed. The risks and benefits of the procedure and the sedation options and risks were discussed with the patient. All questions were answered, and informed consent was obtained. Prior Anticoagulants: The patient has taken no anticoagulant or antiplatelet agents. ASA Grade Assessment: Per anesthesia. After reviewing the risks and benefits, the patient was deemed in satisfactory condition to undergo the procedure. After obtaining informed consent, the endoscope was passed under direct vision. Throughout the procedure, the patient's blood pressure, pulse, and oxygen saturations were monitored continuously. The Endoscope was introduced through the mouth, and advanced to the second part of duodenum. The upper GI endoscopy was accomplished without difficulty. The patient tolerated the procedure well. Scope In: 7:54:29 AM Scope Out: 8:01:10 AM Total Procedure Duration Time 0 hours 6 minutes 41 seconds Findings: The Z-line was irregular and was found 40 cm from the incisors. Biopsies were taken with a cold forceps for histology. Flattening was found in the duodenal bulb. Biopsies for histology were taken with a cold forceps for evaluation of celiac disease. Multiple less than 5 mm erosions with no stigmata of recent bleeding were found in the prepyloric region of the stomach. Biopsies were taken with a cold forceps for histology. Biopsies were taken with a cold forceps for Helicobacter pylori cultures. The cardia and gastric fundus were normal on retroflexion. Impression: - Z-line irregular, 40 cm from the incisors. Biopsied. - Duodenal mucosal changes seen, consistent with celiac disease. Biopsied. - Erosive gastropathy with no stigmata of recent bleeding. Biopsied. Recommendation: - Await pathology results. - Use Prilosec (omeprazole) 40 mg PO BID for 1 month then daily. - Use sucralfate tablets 1 gram PO QID for 1 month. - Discharge patient to home. - Gluten free diet. - Continue present medications. Procedure Code(s): --- Professional --- 76424, Esophagogastroduodenoscopy, flexible, transoral; with biopsy, single or multiple Diagnosis Code(s): --- Professional --- K22.89, Other specified disease of esophagus K31.89, Other diseases of stomach and duodenum R12, Heartburn K90.0, Celiac disease CPT copyright 2021 [employer]. All rights reserved. The codes documented in this report are preliminary and upon information coder review may be revised to meet current compliance requirements. MD Nicole Coombs MD 07/09/2024 8:12:23 AM This report has been signed electronically. Number of Addenda: 0 Note Initiated On: 07/09/2024 7:41 AM
--- NOTE | 2024-07-09 12:49 | PCM.POSTANE2 ---
Anesthesia Postop Eval I Sum Postop Eval Completion status Anesthesia document: Postop Eval 1 completed: Yes Anesthesia Postop Eval I Summary Anesthesia Postop Eval I Summary: Anesthesia Postop Eval I: Assessment Summary Airway patent Yes 07/09/24 08:13 [email or web address] Spontaneous unlabored Yes 07/09/24 08:13 [email or web address] respirations Mental status Awake,Calm 07/09/24 08:13 [email or web address] nausea No 07/09/24 08:13 [email or web address] Vomiting No 07/09/24 08:13 [email or web address] Anesthesia Postop Eval I: Fluid Summary Crystalloid volume administer 30 07/09/24 08:13 [email or web address] (ml) Colloids volume administered ( ml) Blood Product volume administered (ml) Total IV fluid infused 30 07/09/24 08:13 [email or web address] Anesthesia Postop Eval I: Summary Notes Anesthesia Complication No 07/09/24 08:13 [email or web address] Anesthesia Complication Comment: Post-operative progress note Anesthesia: Postop Eval II Evaluation Mental status: Awake Pain Level: 0 nausea: No Vomiting: No
== END 2024-07-09 08:48 | disposition home or self-care (01) ==
LOC: EN 06:26 → AC 06:28
PROVIDERS: Anesthesiology; PCP Family Medicine; Referring Provider Surgery; Visit Provider Surgery
PROC: 0DJ08ZZ Inspection of Upper Intestinal Tract, Via Natural or Artificial Opening Endoscopic (ICD-10-PCS; CPT 43235; principal; 2024-07-09 07:55)
DX: K21.9 Gastro-esophageal reflux disease without esophagitis (principal); E11.40 Type 2 diabetes mellitus with diabetic neuropathy, unspecified; Z79.4 Long term (current) use of insulin; K22.89 Other specified disease of esophagus; K31.89 Other diseases of stomach and duodenum; I10 Essential (primary) hypertension; K90.0 Celiac disease; E78.00 Pure hypercholesterolemia, unspecified; E03.9 Hypothyroidism, unspecified; J45.909 Unspecified asthma, uncomplicated; Z79.52 Long term (current) use of systemic steroids; Z79.890 Hormone replacement therapy; Z79.899 Other long term (current) drug therapy
CPT/HCPCS: 43239; 81025; 82962; 84132; 88305; 88312; 88342; A4216; J2405

== ENCOUNTER 2024-07-13 15:36 | Emergency (ER) | payer MEDICARE, SELFPAY ==
[2024-07-13 15:39] VITALS: BP 201/87; PULSE 114; RESP 18; TEMP 36.4; O2SAT 95
[2024-07-13 15:42] VITALS: BP 201/87; PULSE 114; RESP 18; TEMP 36.4; O2SAT 95
--- NOTE | 2024-07-13 16:03 | EX.ED.DYSGE1 ---
HPI History of Present Illness Chief Complaint: Abscess Informant: patient Onset/Context/Timing Onset: Weeks (3) Context: Gradual Onset Timing: Continuous Quality: Redness Location: Right breast Worsened by: Nothing Relieved by: Nothing Narrative Narrative: Patient presents with abscess to her right breast that has been waxing and waning over the past 3 weeks. Patient states it is gradually getting worse. Patient states she completed a 7-day course of clindamycin 4 days ago. Patient states that over the last 4 days her abscesses gotten bigger. Patient admits to some increased redness around the area. Patient states nothing makes her abscess better and nothing makes it worse. Patient denies any fevers or chills. Patient [place] any discharge or drainage. Patient also complains of a rash under her left breast. [facility] Medical History Wears glasses Marijuana use Fatty liver High cholesterol Boil Back pain Diabetic nephropathy Type 1 diabetes History of pain when walking Leg cramps History of edema Cardiology follow-up encounter Celiac disease GERD (gastroesophageal reflux disease) TMJ syndrome Diabetic neuropathy Osteoarthritis Fibromyalgia History of TMJ disorder PTSD (post-traumatic stress disorder) Depression Anxiety History of kidney stones Hypothyroid Hypercholesteremia Hypertension Diabetes Asthma Home Medications ?Medication ?Instructions ?Recorded ?Last Taken ?Type amlodipine 5 mg tablet 5 mg PO DAILY 11/05/23 07/09/24 History azelastine 205.5 mcg (0.15 %) 1 spray intranasal BID PRN sinus 11/05/23 Unknown History nasal spray symptoms buspirone 30 mg tablet 30 mg PO BID 11/05/23 07/09/24 History cetirizine 10 mg capsule (Zyrtec) 10 mg PO DAILY allergy symptoms 11/05/23 07/09/24 History chlorthalidone 15 mg tablet 15 mg PO DAILY 11/05/23 07/08/24 History insulin lispro 200 unit/mL (3 mL) 20 unit subcut DAILY 11/05/23 Unknown History subcutaneous pen (Humalog KwikPen U-200 Insulin) levothyroxine 50 mcg tablet 50 mcg PO DAILY 11/05/23 07/09/24 History (Unithroid) prednisone 10 mg tablet 10 mg PO DAILY 11/05/23 07/08/24 History rosuvastatin 5 mg tablet 5 mg PO DAILY 11/05/23 07/08/24 History tiotropium bromide 2.5 2 puff inhalation DAILY 11/05/23 07/09/24 History mcg/actuation mist for inhalation (Spiriva Respimat) tizanidine 2 mg capsule 2 mg PO BID PRN muscle spasticity 11/05/23 07/08/24 History fluticasone furoate 100 1 inh inhalation DAILY 06/03/24 07/09/24 History mcg-vilanterol 25 mcg/dose inhalation powder (Breo Ellipta) potassium chloride 10 mEq 10 meq PO DAILY 06/03/24 07/08/24 History tablet,extended release ropinirole 1 mg tablet 1 mg PO BID 06/03/24 07/09/24 History levomefolate calcium 15 mg tablet 15 mg PO QDAY 06/11/24 07/08/24 History furosemide 20 mg tablet 20 mg PO MOWEFR 07/07/24 07/07/24 History gabapentin 600 mg tablet 1,200 mg PO BID 07/07/24 07/09/24 History levalbuterol tartrate 45 1 - 2 puff inhalation Q4H PRN PRN 07/07/24 07/08/24 History mcg/actuation aerosol inhaler wheezing paroxetine HCl 40 mg tablet 40 mg PO DAILY 07/07/24 07/08/24 History vit no.133-ferrous 1 tab PO DAILY 07/07/24 07/08/24 History fumarate 28 mg-folic acid 800 mcg tablet () omeprazole 40 mg capsule,delayed 40 mg PO DAILY #60 caps 07/09/24 Unknown Rx release sucralfate 1 gram tablet 1 g PO 4X/DAY #56 tabs 07/09/24 Unknown Rx clindamycin HCl 300 mg capsule 300 mg PO 4XD #40 caps 07/13/24 Unknown Rx clotrimazole 1 % topical cream 1 applic topical BID #15 grams 07/13/24 Unknown Rx fluconazole 150 mg tablet 150 mg PO DAILY 1 dose #1 TAB 07/13/24 Unknown Rx Allergy/AdvReac Type Severity Reaction Status Date / Time doxycycline Allergy Severe Nausea/Vom/ Verified 07/13/24 15:38 Diarrhea montelukast (From Singulair) Allergy Severe Other Verified 07/13/24 15:38 lubricant Allergy Mild Itching Verified 07/13/24 15:38 oxycodone Allergy Itching Verified 07/13/24 15:38 adhesive tape AdvReac Mild Rash Verified 07/13/24 15:38 Surgical History History of surgery on right wrist S/P nasal septoplasty S/P wisdom tooth extraction History of mandibular surgery History of ankle surgery Social History Smoking Status: Never smoker alcohol intake: never ROS ROS ED Constitutional Constitutional ED: Denies chills or fever(s) Eyes Eyes: Denies blurry vision or change in vision ENT ENT ED: Denies rhinorrhea or sore throat Cardiovascular Cardiovascular: Denies chest pain or palpitations Respiratory/Chest Respiratory/Chest: Reports cough; Denies dyspnea Gastrointestinal Gastrointestinal: Denies nausea or vomiting Genitourinary Genitourinary ED: Denies dysuria or hematuria Musculoskeletal Musculoskeletal: Denies back pain or neck pain Integumentary Reports abscess and rash Neurologic Neurologic: Denies headache(s) or weakness Allergic/Immunologic Allergic/Immunologic ED: Denies mouth swelling or urticaria EXAM Physical Exam Const Vital Signs: 07/13/24 15:39 07/13/24 15:42 07/13/24 17:18 Temperature 97.5 F L 97.5 F L 98.0 F Temperature Source Temporal Temporal Pulse Rate 114 H 114 H 79 Respiratory Rate 18 18 18 Blood Pressure 201/87 H 201/87 H 178/88 H Blood Pressure Mean 125 125 118 Pulse Ox 95 95 97 Oxygen Delivery Method Room Air Room Air Positive well nourished and well developed General Appearance ED: well developed and NAD HEENT Reports moist mucous membranes Neck supple and no JVD Resp normal respiratory effort and clear to auscultation bilaterally Cardio regular rate and regular rhythm GI non-tender and non-distended Palpation: soft Extremity normal to inspection General Extremety ED: Negative for edema or tenderness General Extremity: Negative for edema Neuro oriented x3, CN's II-XII intact bilaterally and no sensory deficits noted Sensorium / Orientation: alert Motor Exam: strength 5/5 throughout Psych mental status grossly normal Skin Skin Narrative: There is an abscess over the inferior aspect of her right breast. There is some surrounding erythema and mild induration. There is mild fluctuance. There is no active discharge or drainage. There is also a patchy erythematous rash over the skin fold of the left breast. There is no discharge or drainage. There are some satellite lesions. MDM MDM MDM Narrative Medical decision making narrative: Patient was advised of the need for incision and drainage of her abscess to her right breast. Patient was advised that the rash under the left breast is likely a fungal rash. Patient is agreeable to incision and drainage. The right breast was cleaned and had the best test 1% plain lidocaine locally. A small linear incision was made using a 15 blade scalpel. There is a moderate amount of purulent drainage expressed. The wound was left open. Patient tolerated the procedure well. Bacitracin dressing was applied. Patient was given a dose of clindamycin here. Patient was given a prescription for clindamycin. Patient was also given a prescription for clotrimazole cream to apply to the skin fold of the left breast. Patient was instructed to follow-up with her primary care physician in 5 to 7 days. Patient understood and was agreeable with the plan. All questions were answered. Procedures Other Procedures Procedure(s): The area was cleaned with chlorhexidine prep. The area was anesthetized with 1% plain lidocaine locally. A small linear incision was made using an 15 blade scalpel. A moderate amount of purulent drainage was expressed. The wound was left open. Bacitracin dressing was applied. Patient tolerated the procedure well. Discharge Plan Triage Chief Complaint: Abscess ED Provider: Jeanmarie Campo Dx/Rx/DC Orders Clinical Impression: Abscess of right breast, Tinea corporis Instructions: ED Abscess Incision And Drainage, ED Fungal Skin Infection (Tinea) Prescriptions: New clotrimazole 1 % cream 1 applic topical BID Qty: 15 0RF fluconazole 150 mg tablet 150 mg PO DAILY Qty: 1 0RF Rx Instructions: administer on day 1 of therapy Changed clindamycin HCl 300 mg capsule 300 mg PO 4XD Qty: 40 0RF Patient Comments: LAST DOSE 07/09/24 No Action prednisone 10 mg tablet 10 mg PO DAILY Spiriva Respimat 2.5 mcg/actuation mist 2 puff inhalation DAILY amlodipine 5 mg tablet 5 mg PO DAILY Humalog KwikPen Insulin 200 unit/mL (3 mL) insulin pen 20 unit subcut DAILY Patient Comments: 20-100 UNITS DAILY levothyroxine [Unithroid] 50 mcg tablet 50 mcg PO DAILY rosuvastatin 5 mg tablet 5 mg PO DAILY Zyrtec 10 mg capsule 10 mg PO DAILY azelastine 205.5 mcg (0.15 %) spray,non-aerosol 1 spray intranasal BID PRN (Reason: sinus symptoms) Rx Instructions: administer into each nostril buspirone 30 mg tablet 30 mg PO BID chlorthalidone 15 mg tablet 15 mg PO DAILY tizanidine 2 mg capsule 2 mg PO BID PRN (Reason: muscle spasticity) Patient Comments: 1 CAP IN AM 2 CAP IN PM levomefolate calcium 15 mg tablet 15 mg PO QDAY ropinirole 1 mg tablet 1 mg PO BID potassium chloride 10 mEq tablet extended release 10 meq PO DAILY fluticasone furoate-vilanterol [Breo Ellipta] 100-25 mcg/dose blister with device 1 inh INHALATION DAILY gabapentin 600 mg tablet 1,200 mg PO BID 28-800 mg-mcg tablet 1 tab PO DAILY levalbuterol tartrate 45 mcg/actuation HFA aerosol inhaler 1 - 2 puff inhalation Q4H PRN PRN (Reason: wheezing) paroxetine HCl 40 mg tablet 40 mg PO DAILY furosemide 20 mg tablet 20 mg PO MOWEFR sucralfate 1 gram tablet 1 g PO 4X/DAY Qty: 56 1RF Rx Instructions: Take 1 hour before meals?lunch and dinner (okay to skip breakfast due to levothyroxine) and at bedtime omeprazole 40 mg capsule,delayed release(DR/EC) 40 mg PO DAILY Qty: 60 5RF Rx Instructions: Take initially twice daily for 1 month then daily. However omeprazole needs to be taken at least 1 hour after the levothyroxine in a.m. Primary Care Provider: Cori Kruse Referrals: Cori Kruse MD [Primary Care Provider] - 5-7 Days Print Language: Palauan Disposition Disposition: Home, Self Care Discharge Date/Time: 07/13/24 17:20
[2024-07-13] MEDS: Lidocaine 1% (20 ml mdv) 20 ML Vial INFILT (16:50)
[2024-07-13] MEDS: Clindamycin HCl 150 MG Capsule 300 MG PO (16:50)
[2024-07-13 17:18] VITALS: BP 178/88; PULSE 79; RESP 18; TEMP 36.7; O2SAT 97
== END 2024-07-13 17:20 | disposition home or self-care (01) ==
PROVIDERS: Emergency Provider Emergency Medicine; PCP Family Medicine; Visit Provider Emergency Medicine
DX: N61.1 Abscess of the breast and nipple (principal); Z79.4 Long term (current) use of insulin; E10.21 Type 1 diabetes mellitus with diabetic nephropathy; I10 Essential (primary) hypertension; B35.4 Tinea corporis; E78.00 Pure hypercholesterolemia, unspecified; Z79.899 Other long term (current) drug therapy
CPT/HCPCS: 10060; 99283

== ENCOUNTER → 2024-08-09 | Outpatient (CLI) | payer MEDICARE, SELFPAY ==
--- NOTE | 2024-08-09 09:07 | MRI_ITS ---
PROCEDURE: MRI lumbar spine without IV contrast REASON FOR EXAM: Pain, sciatica TECHNIQUE: Multisequence multiplanar MR images of the lumbar spine were obtained without the administration of intravenous contrast. COMPARISON: None. FINDINGS: Vertebral body heights are within normal limits. Negative for fracture or marrow replacement. Alignment is intact. No paraspinal mass. Conus medullaris is within normal limits and terminates at L1-L2. L1-2: No focal disc abnormality, spinal stenosis or foraminal narrowing. L2-3: No focal disc abnormality, spinal stenosis or foraminal narrowing. L3-4: No focal disc abnormality, spinal stenosis or foraminal narrowing. Mild bilateral facet arthrosis including a small left facet joint effusion. L4-5: Minimal posterior disc bulge. Mild bilateral facet arthrosis. No significant spinal stenosis or foraminal narrowing. L5-S1: No focal disc abnormality, spinal stenosis or foraminal narrowing. Mild bilateral facet arthrosis. MRI/Spine Lumbar (Routine) IMPRESSION: No focal disc herniation, spinal stenosis or foraminal narrowing. Reading Location: [facility]
== END | disposition home or self-care (01) ==
PROVIDERS: PCP Family Medicine; Referring Provider Student in an Organized Health Care Education/Training Program; Visit Provider Student in an Organized Health Care Education/Training Program
DX: M54.16 Radiculopathy, lumbar region (principal)
CPT/HCPCS: 72148

== ENCOUNTER → 2024-08-15 | Outpatient (CLI) | payer MEDICARE, SELFPAY ==
--- NOTE | 2024-08-15 10:21 | BI_ITS ---
PROCEDURE: SCRN MAMM (CAD)W/ZEFERINO BILAT REASON FOR EXAM: F, Age 44 y/o, resolving right breast abscess. No family history. TECHNIQUE: Bilateral screening digital breast tomosynthesis with 2D and 3D images. Computer aided detection. COMPARISON: None available. FINDINGS: There is a 1.3 cm well-defined nodule in the anterior upper lateral aspect of the left breast. This most likely represents a small lymph node. Small benign-appearing axillary lymph nodes. No suspicious masses, areas of developing architectural distortion, or suspicious calcifications. BI/SCRN MAMM (CAD)W/ZEFERINO BILAT IMPRESSION: BI-RADS 2: BENIGN. RECOMMEND ANNUAL MAMMOGRAPHIC SCREENING. Follow-up code: Routine Follow-up The patient will be notified of the results by letter. Reading Location: [place] [id number]
== END | disposition home or self-care (01) ==
LOC: OPBI 10:19
PROVIDERS: PCP Family Medicine; Referring Provider Advanced Practice Midwife; Visit Provider Advanced Practice Midwife
DX: Z12.31 Encounter for screening mammogram for malignant neoplasm of breast (principal)
CPT/HCPCS: 77063; 77067

== ENCOUNTER → 2024-08-26 | Outpatient (CLI) | payer MEDICARE, SELFPAY ==
--- NOTE | 2024-08-26 07:51 | US_ITS ---
PROCEDURE: BREAST LIMITED UNILATERAL REASON FOR EXAM: History of right breast abscess. TECHNIQUE: Targeted right breast ultrasound. COMPARISON: Comparison is made with prior mammogram dated August 26, 2024. FINDINGS: RIGHT: Right breast ultrasound was targeted to the inferior lateral aspect.. There are 2 adjacent hypoechoic densities within the skin line along the 7 o'clock position of the breast at 8 cm and 6 cm from the nipple. The largest measures 1.2 cm x 1.3 cm x 0.3 cm. These may represent residual small abscess. Follow-up recommended. US/Breast Limited Unilateral IMPRESSION: 2 adjacent hypoechoic densities within the skin line along the 7 o'clock positi on of the breast at 8 cm and 6 cm from the nipple. The largest measures 1.2 cm x 1.3 cm x 0.3 cm. These may represent residual sm all abscesses. Follow-up code: BI-RADS category 2. Reading Location: [facility]
== END | disposition home or self-care (01) ==
LOC: OPUS 07:46
PROVIDERS: PCP Family Medicine; Referring Provider Advanced Practice Midwife; Visit Provider Advanced Practice Midwife
DX: N61.1 Abscess of the breast and nipple (principal); N64.4 Mastodynia
CPT/HCPCS: 76642

== ENCOUNTER → 2024-09-09 | Outpatient (CLI) | payer MEDICARE, SELFPAY ==
[2024-09-09 09:40] LABS: Absolute Lymphocyte Count 1.62 X10^3/uL (0.83-4.51); Absolute Neutrophil Count 8.4 X10^3/uL (2.0-7.7); Basophil# 0.05 X10^3/uL; Basophil% 0.5 % (0-1); Eosinophil# 0.06 X10^3/uL; Eosinophils% 0.6 % (0-5); Hematocrit 43.1 % (37-47); Hemoglobin 15.3 g/dL (12.0-15.0); Lymphocyte # 1.62 X10^3/ul (0.83-4.51); Lymphocyte % 15.2 % (19-41); Mean Corp Hgb Conc 35.5 g/dL (32-36); Mean Corpuscular Hgb 30.7 pg (27.0-32.0); Mean Corpuscular Volume 86.5 fL (81-99); Mean Platelet Vol. 10.1 fl (6.2-12.0); Monocyte# 0.48 X10^3/uL; Monocyte% 4.5 % (0-10); NRBC Flagged by Analyzer 0 % (0-5); Neutrophil # 8.41 X10^3/uL (2.7-7.7); Neutrophil % 78.7 % (47-70); Platelet Count 333 K/mm3 (150-450); RBC Distribution Width CV 13.4 % (11.6-14.6); RBC Distribution Width SD 41.6 fl (35.1-43.9); Red Blood Count 4.98 M/mm3 (4.2-5.4); White Blood Count 10.7 K/mm3 (4.4-11.0)
[2024-09-16 13:08] LABS: Aspirgillus flavus Negative (Neg:<1:1); Aspirgillus fumigatus Negative (Neg:<1:1); Aspirgillus niger Negative (Neg:<1:1); Immunoglobulin E 25 IU/mL (6-495)
== END | disposition home or self-care (01) ==
PROVIDERS: PCP Family Medicine; Referring Provider Nurse Practitioner Family; Visit Provider Nurse Practitioner Family
DX: J45.909 Unspecified asthma, uncomplicated (principal)
CPT/HCPCS: 36415; 82785; 85025; 86606

== ENCOUNTER → 2024-09-15 | Outpatient (CLI) | payer MEDICARE, SELFPAY ==
--- NOTE | 2024-09-15 07:59 | US_ITS ---
PROCEDURE: BREAST LIMITED UNILATERAL REASON FOR EXAM: NODULE UPPER,LATERAL LEFT BREAST COMPARISON: Comparison is made with prior ultrasound dated August 26, 2024. TECHNIQUE: Targeted ultrasound of the left breast. FINDINGS: LEFT: Ultrasound targeted to the upper-outer aspect at the left breast. Residual 7 mm x 10 mm x 10 mm tear dropped superficial cystic nodule with low- level echoes at the 1 o'clock position of the breast at 7 cm from the nipple. This has decreased in size as compared to prior study. The previously seen 2nd lesion is not seen at this time. US/Breast Limited Unilateral IMPRESSION: Improvement as compared to prior study. Residual 7 mm x 10 mm x 10 mm cystic s tructure with low-level echoes at the 1 o'clock position of the breast at 7 cm from the nipple. This most likely represents im proving abscesses. BI-RADS 2: BENIGN. RECOMMEND ANNUAL MAMMOGRAPHIC SCREENING. Reading Location: [place] [id number]
== END | disposition home or self-care (01) ==
PROVIDERS: PCP Family Medicine; Referring Provider Surgery; Visit Provider Surgery
DX: N61.1 Abscess of the breast and nipple (principal)
CPT/HCPCS: 76642

== ENCOUNTER → 2024-09-19 | Outpatient (CLI) | payer MEDICARE, SELFPAY ==
--- NOTE | 2024-09-19 15:41 | MRI_ITS ---
PROCEDURE: LOWER EXT JOINT ONLY (ROUTINE) 09/19/2024 REASON FOR EXAM: PAIN TECHNIQUE: MRI of the left knee without contrast COMPARISON: None provided FINDINGS A small left knee joint effusion is seen. A small Conklin's cyst is also seen. Partial tear of the medial collateral ligament is noted, also with mild adjacent edema. The lateral collateral ligament and cruciate ligaments appear intact. The visualized extensor tendons appear intact. No acute osseous signal change is seen. Mild degenerative changes are seen of the medial compartment, with mild to moderate irregular articular cartilage thinning. Mild degenerative changes seen of the patellofemoral compartment, most apparent at the medial facet of the patella. No lateral meniscal tear is evident. The medial meniscus shows significant inhomogeneous signal of the body and posterior horn, with probable surfacing tears of the posterior horn also seen. MRI/Lower Ext Joint Only (Routine) IMPRESSION: 1. Degenerative changes, most prominent in the medial compartment. 2. Partial tear of the medial collateral ligament. 3. Medial meniscal tearing as described. 4. Joint effusion and small Conklin's cyst. 5. No acute osseous process is evident. Reading Location: [id number]
== END | disposition home or self-care (01) ==
LOC: MRI 15:34
PROVIDERS: PCP Family Medicine; Referring Provider Orthopaedic Surgery; Visit Provider Orthopaedic Surgery
DX: S83.412A Sprain of medial collateral ligament of left knee, initial encounter (principal)
CPT/HCPCS: 73721

== ENCOUNTER → 2024-09-19 | Outpatient (CLI) | payer MEDICARE, SELFPAY ==
[2024-09-26 15:08] LABS: HPV APTIMA, High Risk Negative (Negative)
== END | disposition home or self-care (01) ==
LOC: LABSPEC 11:56
PROVIDERS: PCP Family Medicine; Referring Provider Advanced Practice Midwife; Visit Provider Advanced Practice Midwife
DX: Z12.4 Encounter for screening for malignant neoplasm of cervix (principal)
CPT/HCPCS: 87624; 88175; G0145

== ENCOUNTER 2024-10-06 07:56 | Day surgery (SDC) | payer MEDICARE, SELFPAY ==
[2024-10-06] VITALS (7 sets, daily range): BP systolic 140–160; BP diastolic 65–81; PULSE 78–91; RESP 16–18; TEMP 27.2–37.4; O2SAT 96–98; BMI 50.5
[2024-10-06 08:23] LABS: Internal QC Validated? YES +Cl - CLEAR BKGD; Pregnancy, Urine Negative Negative
--- NOTE | 2024-10-06 08:44 | PCM.PRE.AN2 ---
ASA Classification* ASA Classification ASA Classification: 3 Assessment & Plan Anesthesia* Anesthesia Assessment Anesthesia Assessment: Discussed sedation and/or anesthesia options, risks, benefits, and alternatives with patient/parents/legal guardian/POA. Questions invited. The patient/parents/legal guardian/POA seems to understand and agrees to proceed with anesthesia plan. Reviewed the physical assessment, medical history, allergy history and patient home medications list prior to surgery/procedure/anesthetic and documented any changes. Performed airway and anesthesia risk assessments. Anesthesia Type Anesthesia Type: MAC Anesthesia Focused Assessment* Temperature: 99.4 F Pulse Rate: 88 Blood Pressure: 160/81 Respiratory Rate: 16 Pulse Ox: 97 Airway Assessment Mouth opens: >3 cm Mallampati Score: II Focused Labs Anesthesia Preop lab: CBC WBC 10.7 K/mm3 (4.4-11.0) 09/09/24 09:23 09/09/24 RBC 4.98 M/mm3 (4.2-5.4) 09/09/24 09:23 09/09/24 Hgb 15.3 g/dL (12.0-15.0) H 09/09/24 09:23 09/09/24 Hct 43.1 % (37-47) 09/09/24 09:23 09/09/24 Plt Count 333 K/mm3 (150-450) 09/09/24 09:23 09/09/24 CHEMISTRY Potassium 3.2 mmol/L (3.5-5.1) L 07/09/24 06:54 07/09/24 Sodium 134 mmol/L (136-145) L 06/03/24 04:20 06/03/24 Magnesium 2.1 mg/dL (1.6-2.6) 01/29/24 09:46 01/29/24 BUN 18 mg/dL (7-18) 06/03/24 04:20 06/03/24 Creatinine 0.79 mg/dL (0.55-1.02) 06/03/24 04:20 06/03/24 Glucose 286 mg/dL (74-106) H 06/03/24 04:20 06/03/24 POC Glucose 250 mg/dL (74-106) H 07/09/24 06:59 07/09/24 COAG Urine Test Negative Negative 10/06/24 08:08 10/06/24 Pre-Assessment Diagnosis/Proposed Procedure Planned Operative Procedure(s): CAUDAL EPIDURAL STEROID INJECTION Anesthesia History 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 When Was Last Pacemaker Check QUESTION #4 FULL TEXT: You/Your Family Experience fever (hyperthermia) with Anesthesia Last Oral Intake Last Oral intake: Last Oral Intake NPO since 23:00 10/06/24 08:24 Meds taken in AM with sips of Yes 10/06/24 08:24 water? 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 helper Female Yes 10/01/24 14:32 HX of Motion Sickness Yes 10/01/24 14:32 HX of N/V After Surgery No 10/01/24 14:32 Non-Smoker Yes 10/01/24 14:32 Duration of Surgery greater No 10/01/24 14:32 than 60 minutes Number of Risk Factors 3 10/01/24 14:32 PONV Score Moderate Risk 10/01/24 14:32 Height & Weight Height & Weight: Anesthesia: Height & Weight Height 5 ft 6 in 10/06/24 08:24 Weight: 142 kg 10/06/24 08:24 Body Mass Index (BMI) 50.5 10/06/24 08:24 Respiratory Assessment Respiratory Assessment - pig lead melter helper: Respiratory Tract Infection Hx - pig lead melter helper Hx Respiratory Tract Infection No 10/01/24 14:32 STOP Sleep Apnea STOP Sleep Apnea - pig lead melter helper: STOP Sleep Apnea - pig lead melter helper Hx Hypertension Yes: CONTROLLED WITH MEDS 10/01/24 14:32 Hx Sleep Apnea Yes 10/01/24 14:32 CPAP Yes: NONCOMPLIANT FOR MANY 10/01/24 14:32 YRS BIPAP No 10/01/24 14:32 Do you snore loudly (louder than talking or can be heard Do you often feel tired/ fatigued/ sleepy during daytime? Has anyone observed you stop breathing during sleep? STOP Results Positive 10/01/24 14:32 QUESTION #5 FULL TEXT : Do you snore loudly (louder than talking or can be heard through closed doors)? 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 Specify any problems Hx of Preganancy in last 3 No 10/01/24 14:32 Months Nurse Filling Out Transfusion DSCHRIBER 10/01/24 14:32 & Questions: Date: 10/01/24 10/01/24 14:32 Time: 14:34 10/01/24 14:32 Patient unable to answer at this time (ie. confused, unrespo /Reproduction History /Reproductive History - pig lead melter helper: /Reproductive Hx- pig lead melter helper Hx Now Gestational Age (in weeks): EDC: Hx Hx Para Hx Section SAB No 10/01/24 14:32 PFSH Medical History History of steroid therapy Yeast dermatitis Wears glasses Marijuana use Fatty liver High cholesterol Back pain Diabetic nephropathy Type 1 diabetes History of pain when walking Leg cramps History of edema Cardiology follow-up encounter Celiac disease GERD (gastroesophageal reflux disease) Osteoarthritis Fibromyalgia History of TMJ disorder PTSD (post-traumatic stress disorder) Depression Anxiety Hypothyroid Hypertension Asthma Home Medications ?Medication ?Instructions ?Recorded ?Last Taken ?Type amlodipine 5 mg tablet 5 mg PO DAILY 11/05/23 10/06/24 History azelastine 205.5 mcg (0.15 %) 1 spray intranasal BID PRN sinus 11/05/23 Unknown History nasal spray symptoms buspirone 30 mg tablet 30 mg PO BID 11/05/23 10/06/24 History cetirizine 10 mg capsule (Zyrtec) 10 mg PO DAILY allergy symptoms 11/05/23 10/06/24 History chlorthalidone 15 mg tablet 15 mg PO DAILY 11/05/23 10/06/24 History levothyroxine 50 mcg tablet 50 mcg PO DAILY 11/05/23 07/09/24 History (Unithroid) prednisone 10 mg tablet 10 mg PO DAILY 11/05/23 07/08/24 History rosuvastatin 5 mg tablet 5 mg PO QHS 11/05/23 07/08/24 History tiotropium bromide 2.5 2 puff inhalation DAILY 11/05/23 10/06/24 History mcg/actuation mist for inhalation (Spiriva Respimat) tizanidine 2 mg capsule 2 mg PO DAILY muscle spasticity 11/05/23 07/08/24 History fluticasone furoate 100 1 inh inhalation DAILY 06/03/24 10/06/24 History mcg-vilanterol 25 mcg/dose inhalation powder (Breo Ellipta) potassium chloride 10 mEq 10 meq PO QHS 06/03/24 07/08/24 History tablet,extended release ropinirole 1 mg tablet 1 mg PO BID 06/03/24 10/06/24 History levomefolate calcium 15 mg tablet 15 mg PO QDAY 06/11/24 07/08/24 History furosemide 20 mg tablet 20 mg PO MOWEFR 07/07/24 10/06/24 History gabapentin 600 mg tablet 1,200 mg PO BID 07/07/24 07/09/24 History levalbuterol tartrate 45 1 - 2 puff inhalation Q4H PRN PRN 07/07/24 10/06/24 History mcg/actuation aerosol inhaler wheezing paroxetine HCl 40 mg tablet 40 mg PO QHS 07/07/24 07/08/24 History vit no.133-ferrous 1 tab PO QHS 07/07/24 10/06/24 History fumarate 28 mg-folic acid 800 mcg tablet () sucralfate 1 gram tablet 1 g PO 4X/DAY #56 tabs 07/09/24 Unknown Rx paroxetine HCl 10 mg tablet 10 mg PO QHS 08/15/24 Unknown History ARMICARE 2 tab buccal DAILY PRN pain 10/01/24 Unknown History acetaminophen 500 mg tablet 1,000 mg PO BID 10/01/24 Unknown History (Acetaminophen Extra Strength) insulin lispro 100 unit/mL 1 unit subcut DAILY 10/01/24 Unknown History subcutaneous cartridge (Humalog U-100 Insulin) menthol 10 % topical cream 1 applic topical DAILY PRN PRN pain 10/01/24 10/06/24 History (Biofreeze (menthol)) omeprazole 40 mg capsule,delayed 40 mg PO QHS 10/01/24 10/06/24 History release tizanidine 2 mg capsule 4 mg PO QHS 10/01/24 Unknown History Allergy/AdvReac Type Severity Reaction Status Date / Time doxycycline Allergy Severe Nausea/Vom/ Verified 10/06/24 08:22 Diarrhea montelukast (From Singulair) Allergy Severe Other Verified 10/06/24 08:22 lubricant Allergy Mild Itching Verified 10/06/24 08:22 oxycodone Allergy Itching Verified 10/06/24 08:22 adhesive tape AdvReac Mild Rash Verified 10/06/24 08:22 Family History Other Asthma Diabetes Hypertension Kidney disease Thyroid disorder Surgical History History of esophagogastroduodenoscopy (EGD) History of surgery on right wrist S/P nasal septoplasty S/P wisdom tooth extraction History of mandibular surgery History of ankle surgery Social History household members: spouse current occupational status: disabled Smoking Status: Never smoker second hand exposure: No alcohol intake: never substance use type: does not use additional social history: : [place] Review of Systems (Anesthesia) ROS Narrative System reviewed and no additional complaints, except as documented.
[2024-10-06 09:13] LABS: Bedside Glucose 128 mg/dL (74-106)
--- NOTE | 2024-10-06 09:18 | RAD_ITS ---
PROCEDURE: FLUOR GUIDANCE FOR SPINE INJ 10/06/2024 REASON FOR EXAM: BLOCK,CAUDAL TECHNIQUE: Single fluoroscopic image was submitted. Fluoroscopy time was 6.7 seconds. Peak skin radiation dose is 5.2 mGy. COMPARISON: None FINDINGS: See impression RAD/Fluor Guidance for Spine Inj IMPRESSION: Fluoroscopic guidance provided during sacral injection. See operative report for further details. Reading Location: [facility]
[2024-10-06] MEDS: MethylPREDNISolone Acetate 80 MG/ML Vial (09:24)
[2024-10-06] MEDS: Bupivacaine 0.25% 30 ML Vial ×2 (09:24→09:28)
[2024-10-06] MEDS: Lidocaine 1% (5 ml sdv) 5 ML Vial (09:24)
[2024-10-06] MEDS: 0.9% Normal Saline (Pres. free 10 ML Vial (09:24)
--- NOTE | 2024-10-06 09:29 | PCM.POST.ANE ---
Anesthesia: Postop Eval I Current Vital Signs Temperature: 98.2 F Pulse Rate: 78 Blood Pressure: 140/65 Respiratory Rate: 18 Pulse Ox: 98 Assessment Airway patent: Yes Spontaneous unlabored respirations: Yes nausea: No Vomiting: No Anesthesia Complication: No Fluid Hydration Crystalloid volume administer (ml): 10 Total IV fluid infused: 10 Progress Note Anesthesia document: Postop Eval 1 completed: Yes
--- NOTE | 2024-10-06 09:33 | PCM.OPRPT ---
Operative Report (Standard) Operative Information Date of Procedure: 10/06/24 Pre-Operative Diagnosis: Lumbosacral radiculopathy, lumbosacral degenerative disc disease, lumbosacral spinal stenosis Post-Operative Diagnosis: Lumbosacral radiculopathy, lumbosacral degenerative disc disease, lumbosacral spinal stenosis Surgery/Procedure Performed: Diagnostic/therapeutic caudal procedure injection under fluoroscopic guidance kennel assistant: No Type of Anesthesia: Local MAC RN Documented Start/Stop Times: Operation Date: 10/06/24 09:40 Case Time Into Pre-Op 10/06/24 08:06 Anesthesia Start 10/06/24 09:18 Into Room 10/06/24 09:18 Procedure Start 10/06/24 09:24 Procedure End 10/06/24 09:26 Anesthesia End 10/06/24 09:30 Out of Room 10/06/24 09:30 Procedure Start Time: 09:33 Procedure Stop Time: 09:34 Select all DRAINS/GRAFTS/IMPLANTS that apply: None Estimated Blood Loss: 0 Specimen collected: No Description of surgery: ANESTHESIA: MAC. BLOOD LOSS: Minimal. COMPLICATIONS: None. DESCRIPTION OF PROCEDURE: History and physical of today was reviewed. Risks and benefits of the procedure were explained. The patient understood and agreed to proceed. Informed consent was obtained. IV inserted per routine protocol. The patient was taken to the operating room and placed in the prone position with a pillow positioned underneath the abdomen. The lower back and tailbone area was prepped and draped in a sterile fashion using iodine x3. Under fluoroscopy guidance on a lateral view, the caudal space was identified. The skin and subcutaneous tissue was anesthetized with approximately 3 mL of 1% lidocaine using a 25-gauge regular needle. Under direct visualization with fluoroscopy, using a 22-gauge 3-1/2-inch spinal needle, the needle was advanced via the skin through the sacral hiatus. The tip of the needle was passed through the sacrococcygeal ligament and advanced to approximately S4 area. After negative aspiration of blood or CSF, a total of 3 mL of contrast was injected to confirm correct placement of the needle as well as cephalad spread. The spread was followed to approximately L5 area. After confirmation on AP as well as lateral view and repeated negative aspiration, a total of 15 mL of preservative-free 0.125% Marcaine with 80 mg of Depo-Medrol was injected easily. The needle was then removed intact. The patient experienced no sign or symptoms of intrathecal or intravascular injection. The patient experienced no paresthesia. The procedure was completed without any apparent difficulty or any complications. The patient appeared to tolerate it well. ASSESSMENT AND PLAN: This is a 44-year-old female with lumbosacral radiculopathy, lumbosacral degenerative disc disease, lumbosacral spinal stenosis status post diagnostic/therapeutic caudal epidural steroid injection under fluoroscopic guidance, patient will continue her current medications, patient will follow-up in approximately 2 weeks for reevaluation. Surgical Findings: 0 Complications Complications: No Admit VTE Documentation VTE Present on Admission: No
--- NOTE | 2024-10-06 09:50 | POSTOPAN2_ITS ---
Anesthesia Postop Eval I Sum Postop Eval Completion status Anesthesia document: Postop Eval 1 completed: Yes Anesthesia Postop Eval I Summary Anesthesia Postop Eval I Summary: Anesthesia Postop Eval I: Assessment Summary Airway patent Yes 10/06/24 09:29 COTTONSEED MEAT [email or web address] Spontaneous unlabored Yes 10/06/24 09:29 COTTONSEED MEAT PRESSER.CSIR respirations Mental status nausea No 10/06/24 09:29 COTTONSEED MEAT [email or web address].CSIR Vomiting No 10/06/24 09:29 COTTONSEED MEAT [email or web address].CSIR Anesthesia Postop Eval I: Fluid Summary Crystalloid volume administer 10 10/06/24 09:29 COTTONSEED MEAT PRESSER.CSIR (ml) Colloids volume administered ( ml) Blood Product volume administered (ml) Total IV fluid infused 10 10/06/24 09:29 COTTONSEED MEAT PRESSER.CSIR Anesthesia Postop Eval I: Summary Notes Anesthesia Complication No 10/06/24 09:29 COTTONSEED MEAT PRESSER.CSIR Anesthesia Complication Comment: Post-operative progress note Anesthesia: Postop Eval II Evaluation Mental status: Awake Pain Level: 2 nausea: No Vomiting: No
--- NOTE | 2024-10-06 09:50 | PCM.POSTANE2 ---
Anesthesia Postop Eval I Sum Postop Eval Completion status Anesthesia document: Postop Eval 1 completed: Yes Anesthesia Postop Eval I Summary Anesthesia Postop Eval I Summary: Anesthesia Postop Eval I: Assessment Summary Airway patent Yes 10/06/24 09:29 [email or web address] Spontaneous unlabored Yes 10/06/24 09:29 [email or web address] respirations Mental status nausea No 10/06/24 09:29 [email or web address] Vomiting No 10/06/24 09:29 [email or web address] Anesthesia Postop Eval I: Fluid Summary Crystalloid volume administer 10 10/06/24 09:29 [email or web address] (ml) Colloids volume administered ( ml) Blood Product volume administered (ml) Total IV fluid infused 10 10/06/24 09:29 [email or web address] Anesthesia Postop Eval I: Summary Notes Anesthesia Complication No 10/06/24 09:29 [email or web address] Anesthesia Complication Comment: Post-operative progress note Anesthesia: Postop Eval II Evaluation Mental status: Awake Pain Level: 2 nausea: No Vomiting: No
== END 2024-10-06 10:10 | disposition home or self-care (01) ==
LOC: SDC 07:58 → AC 08:17
PROVIDERS: Anesthesiology; PCP Family Medicine; Referring Provider Anesthesiology Pain Medicine; Visit Provider Anesthesiology Pain Medicine
PROC: 3E0S3BZ Introduction of Anesthetic Agent into Epidural Space, Percutaneous Approach (ICD-10-PCS; CPT 62282; principal; 2024-10-06 09:35)
DX: M51.17 Intervertebral disc disorders with radiculopathy, lumbosacral region (principal); E10.40 Type 1 diabetes mellitus with diabetic neuropathy, unspecified; Z79.4 Long term (current) use of insulin; M48.07 Spinal stenosis, lumbosacral region; I10 Essential (primary) hypertension; E03.9 Hypothyroidism, unspecified; Z79.890 Hormone replacement therapy; Z79.899 Other long term (current) drug therapy
CPT/HCPCS: 62323; 01992; 64483; 77003; 81025; 82962; A4216; J2405

== ENCOUNTER 2024-10-15 08:00 | Outpatient (RCR) | payer MEDICARE, SELFPAY ==
--- NOTE | 2024-10-08 12:02 | HP.PTEVAL_ITS ---
Patient's Visit Information Visit Information Visit Information: DARINEL COPELAND is a 44 year old F referred to Physical Therapy by Dr. Talon Jones DO with a diagnosis of L knee OA. Date of Evaluation: 10/08/24 Physical Therapist: Stevo Daniels, PT, ATC Visit Plan Plan: Issue and instruct pt on HEP of L LE strengthening, balance and proprio, and HEP Subjective Subjective: Pt reports she fell approximately one year ago. Pt notes she suffered a laceration that resulted in 15 stitches. Pt reports she has fallen a couple times since which has resulted in chronic pain. Pt notes she continues to have a burning pain in the medial aspect of L knee. Pt reports she has had x- rays and 2 MRI's which showed OA, fraying of her meniscus, and a partial tear of his L MCL. Pt reports she has 2 steps to enter her home which she has to negotiate one step at a time. Pt reports she is unable to squat at this time. This keeps pt from getting into or out her bathtub. Pt notes she is unable to stand or ambulate for prolonged distances secondary to her L knee pain. Pt reports severe difficulty with sit to stand transfers secondary to pain. 4/10 pain while sitting here in the clinic, 10/10 pain while sitting here at rest Pain L knee: Pain Intensity (Out of 10): 4 Pain Intensity Range: 10 Objective Objective: Neuro: L LE is hyposensitive throughout Palpation: Pt is very tender on the medial aspect of L knee. No obvious deformity at this time. nocrep ROM: R knee 0-102 degrees; L knee 0-85 degrees MMT: L knee is 4/5 throughout. R knee 5/5 Balance/Special Test Scores Lower Extremity Functional Score: 16 Goals Goal 1:: Pt will be I with HEP after 2 visit Rehabilitation Potential Physical Therapy Diagnosis: Pt has L knee pain, weakness, and limited ROM secondary to degenerative changes Rehabilitation Potential: Good Anticipated Interventions Patient/Client Instruction: Educate patient on: Condition and Plan of Care For the Purpose of:: To improve self management Therapeutic Exercise to Include: Strength training, Endurance training, Balance training, Flexibilty training and Dynamic Lumbar Stabilization For the Purpose of:: To decrease pain and To improve muscle performance and motor function Text: Thank you for the opportunity to evaluate your patient. For Medicare and Medicare HMO plans, please review the plan of care and approve it. It will need to be FAXED BACK to us at [phone] for Medicare purposes. For Medicare only, by signing this I certify the plan of care. Please let me know if there are questions or concerns regarding this plan of care. Physician Signature: Date:
--- NOTE | 2024-12-31 15:30 | HP.PT.NRP ---
Patient Information Patient Information: DARINEL COPELAND was seen in my office for initial evaluation on 10/08/24. The following Plan of Care was established for this patient: Anticipated Interventions Patient/Client Instruction: Educate patient on: Condition and Plan of Care For the Purpose of:: To improve self management Therapeutic Exercise to Include: Strength training, Endurance training, Balance training, Flexibilty training and Dynamic Lumbar Stabilization For the Purpose of:: To decrease pain and To improve muscle performance and motor function Last Seen Last Seen: This patient was last seen in our office . Pertinent comments regarding their Physical therapy will appear below: Pt has not returned for greater than 30 days and is discontinued at this time. At this point I will be discontinuing this patient from physical therapy. I would be happy to see this patient again in the future if found appropriate by the physician. Thank you! Stevo Daniels, PT, ATC Balance/Gait/Functional tests Balance/Special Test Scores Lower Extremity Functional Score: 16
== END 2024-10-15 19:00 | disposition home or self-care (01) ==
LOC: PT 08:00
PROVIDERS: PCP Family Medicine; Referring Provider Orthopaedic Surgery; Visit Provider Orthopaedic Surgery
DX: S83.412D Sprain of medial collateral ligament of left knee, subsequent encounter (principal); M17.12 Unilateral primary osteoarthritis, left knee
CPT/HCPCS: 97110; 97161

== ENCOUNTER → 2024-10-15 | Outpatient (CLI) | payer MEDICARE, SELFPAY | END | disposition home or self-care (01) | LOC: PSN 10:33 | PROVIDERS: PCP Family Medicine; Referring Provider Nurse Practitioner Family; Visit Provider Nurse Practitioner Family | DX: J45.909 Unspecified asthma, uncomplicated (principal) | CPT/HCPCS: 94060; 94726; 94729 ==

== ENCOUNTER 2024-11-11 11:16 | Outpatient (CLI) | payer MEDICARE, SELFPAY ==
[2024-11-11 15:27] LABS: Absolute Lymphocyte Count 1.89 X10^3/uL (0.83-4.51); Absolute Neutrophil Count 7.2 X10^3/uL (2.0-7.7); Basophil# 0.05 X10^3/uL; Basophil% 0.5 % (0-1); Hematocrit 44.3 % (37-47); Hemoglobin 14.9 g/dL (12.0-15.0); Lymphocyte # 1.89 X10^3/ul (0.83-4.51); Lymphocyte % 19.4 % (19-41); Mean Corp Hgb Conc 33.6 g/dL (32-36); Mean Corpuscular Hgb 30.6 pg (27.0-32.0); Mean Platelet Vol. 10.5 fl (6.2-12.0); Monocyte# 0.48 X10^3/uL; Monocyte% 4.9 % (0-10); NRBC Flagged by Analyzer 0 % (0-5); Neutrophil # 7.17 X10^3/uL (2.7-7.7); Neutrophil % 73.9 % (47-70); Platelet Count 322 K/mm3 (150-450); RBC Distribution Width CV 13.3 % (11.6-14.6); RBC Distribution Width SD 44.8 fl (35.1-43.9); Red Blood Count 4.87 M/mm3 (4.2-5.4); White Blood Count 9.7 K/mm3 (4.4-11.0)
[2024-11-11 15:51] LABS: Hemoglobin A1c 10.1 % (<=5.6)
[2024-11-11 16:43] LABS: ALB/GLOB Ratio 1.5 RATIO (0.9-2.4); AST(SGOT) 33 U/L (<=31); Alanine Aminotransfer ALT/SGPT 40 U/L (<=34); Albumin, Serum 4.3 g/dL (3.5-5.0); Alkaline Phosphatase 131 U/L (35-104); Anion Gap 16 (5-15); BUN 11 mg/dL (4-19); BUN/Creat Ratio 17.9 RATIO (10-20); Calcium,Total 9.7 mg/dL (7.6-11.0); Carbon Dioxide 23.6 mmol/L (21.0-32.0); Chloride 99 mmol/L (98-108); Cholesterol 158 mg/dL (<=200); EST Glomerular Filtration Rate 113 (>60); Ferritin 84 ng/mL (22-378); Globulin 2.8 g/dL (2.2-4.2); Glucose 143 mg/dL (70-99); High Density Lipoprotein 44 mg/dL; Low Density Lipoprotein Calc. 83 mg/dL; Potassium 3.4 mmol/L (3.3-5.1); Protein, Total 7.2 g/dL (5.9-8.4); Sodium Level 139 mmol/L (133-145); Total Bilirubin 0.89 mg/dL (0.00-1.30); Triglycerides 158 mg/dL; Very Low Density Lipoprotein 32 mg/dL (5-40); Vitamin B12 761 pg/mL (180-914); Vitamin D,25 Hydroxy 28.6 ng/mL (30-100)
[2024-11-11 18:23] LABS: Iron 144 ug/dL (50-170); Iron Binding Capacity,Total 362 ug/dL (250-450); Iron Binding Capacity,Unsat 218 ug/dL (228-428)
== END 2024-11-11 23:59 | disposition home or self-care (01) ==
LOC: MTLAB 11:19
PROVIDERS: PCP Family Medicine; Referring Provider Family Medicine; Visit Provider Family Medicine
DX: E87.6 Hypokalemia (principal); E10.9 Type 1 diabetes mellitus without complications; E61.1 Iron deficiency; I10 Essential (primary) hypertension; E53.8 Deficiency of other specified B group vitamins; M25.569 Pain in unspecified knee; E55.9 Vitamin D deficiency, unspecified
CPT/HCPCS: 36415; 80053; 80061; 82306; 82607; 82728; 83036; 83540; 83550; 85025

== ENCOUNTER 2025-02-02 08:46 | Day surgery (SDC) | payer MEDICARE, SELFPAY ==
--- NOTE | 2025-02-02 09:12 | SUR.PREOP ---
PATIENT REFUSED TEST BECAUSE SHE IS NOT SEXUALLY ACTIVE.
--- NOTE | 2025-02-02 09:13 | PCM.PRE.AN2 ---
ASA Classification* ASA Classification ASA Classification: 3 Assessment & Plan Anesthesia* Anesthesia Assessment Anesthesia Assessment: Discussed sedation and/or anesthesia options, risks, benefits, and alternatives with patient/parents/legal guardian/POA. Questions invited. The patient/parents/legal guardian/POA seems to understand and agrees to proceed with anesthesia plan. Reviewed the physical assessment, medical history, allergy history and patient home medications list prior to surgery/procedure/anesthetic and documented any changes. Performed airway and anesthesia risk assessments. Anesthesia Type Anesthesia Type: MAC Anesthesia Focused Assessment* Airway Assessment Mouth opens: >3 cm Mallampati Score: II Labs Anesthesia Preop lab: CBC WBC 9.7 K/mm3 (4.4-11.0) 11/11/24 11:11/11/24 RBC 4.87 M/mm3 (4.2-5.4) 11/11/24 11:11/11/24 Hgb 14.9 g/dL (12.0-15.0) 11/11/24 11:11/11/24 Hct 44.3 % (37-47) 11/11/24 11:11/11/24 Plt Count 322 K/mm3 (150-450) 11/11/24 11:11/11/24 CHEMISTRY Potassium 3.4 mmol/L (3.3-5.1) 11/11/24 11:11/11/24 Sodium 139 mmol/L (133-145) 11/11/24 11:11/11/24 Magnesium 2.1 mg/dL (1.6-2.6) 01/29/24 09:46 01/29/24 BUN 11 mg/dL (4-19) 11/11/24 11:11/11/24 Creatinine 0.60 mg/dL (0.70-1.20) L 11/11/24 11:11/11/24 Glucose 143 mg/dL (70-99) H 11/11/24 11:11/11/24 POC Glucose 128 mg/dL (74-106) H 10/06/24 08:18 10/06/24 COAG Urine Test Negative Negative 10/06/24 08:08 10/06/24 Pre-Assessment Diagnosis/Proposed Procedure Planned Operative Procedure(s): Block, Caudal Anesthesia History 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 When Was Last Pacemaker Check QUESTION #4 FULL TEXT: You/Your Family Experience fever (hyperthermia) with Anesthesia Last Oral Intake Last Oral intake: Last Oral Intake NPO since Meds taken in AM with sips of water? Meds patient instructed to take am of surgery PONV PONV - forest pathology teacher: PONV - forest pathology teacher Female Yes 01/26/25 14:51 HX of Motion Sickness Yes 01/26/25 14:51 HX of N/V After Surgery Yes 01/26/25 14:51 Non-Smoker Yes 01/26/25 14:51 Duration of Surgery greater No 01/26/25 14:51 than 60 minutes Number of Risk Factors 4 01/26/25 14:51 PONV Score Severe Risk 01/26/25 14:51 Height & Weight Height & Weight: Anesthesia: Height & Weight Height 5 ft 6 in 01/28/25 08:08 Respiratory Assessment Respiratory Assessment - forest pathology teacher: Respiratory Tract Infection Hx - forest pathology teacher Hx Respiratory Tract Infection No 01/26/25 14:51 STOP Sleep Apnea STOP Sleep Apnea - forest pathology teacher: STOP Sleep Apnea - forest pathology teacher Hx Hypertension Yes: ON MEDS 01/26/25 14:51 Hx Sleep Apnea Yes 01/26/25 14:51 CPAP No 01/26/25 14:51 BIPAP No 01/26/25 14:51 Do you snore loudly (louder than talking or can be heard Do you often feel tired/ fatigued/ sleepy during daytime? Has anyone observed you stop breathing during sleep? STOP Results Positive 01/26/25 14:51 QUESTION #5 FULL TEXT : Do you snore loudly (louder than talking or can be heard through closed doors)? Tobacco Use History Tobacco Use History - forest pathology teacher: Tobacco Use History - forest pathology teacher Tobacco Use Smoking Status Never smoker 01/26/25 14:51 Hx Tobacco Use No 01/26/25 14:51 Years Smoking Packs Smoked per Day Smoking Cessation Date was within the last 15 years Hx Smoking Cessation Date Hx Smoking Cessation Counseling Hematologic Medial History Hematologic Hx - forest pathology teacher: Hematologic Medical Hx - byproducts maker Hx of Blood Transfusion No 01/26/25 14:51 Hx of Transfusion in last 3 No 01/26/25 14:51 Months Date of Last Transfusion (if within last 3 months) Ever experience any problems No 01/26/25 14:51 with transfusion(s)? Specify any problems Hx of Preganancy in last 3 No 01/26/25 14:51 Months Nurse Filling Out Transfusion [email or web address] 01/26/25 14:51 & Questions: Date: 01/26/25 01/26/25 14:51 Time: 14:52 01/26/25 14:51 Patient unable to answer at this time (ie. confused, unrespo /Reproduction History /Reproductive History - forest pathology teacher: /Reproductive Hx- forest pathology teacher Hx Now No 01/26/25 14:51 Gestational Age (in weeks): EDC: Hx Hx Para Hx Section SAB No 01/26/25 14:51 Active Medications Active Medications: Current Medications Generic Name Dose Route Start Last Admin Trade Name Freq PRN Reason Stop Dose Admin Lactated Ringer's 1,000 mls @ 15 mls/hr 02/02/25 09:15 IV .Q48H AYAN PFSH Medical History History of steroid therapy Yeast dermatitis Wears glasses Marijuana use Fatty liver High cholesterol Back pain Diabetic nephropathy Type 1 diabetes History of pain when walking Leg cramps History of edema Cardiology follow-up encounter Celiac disease GERD (gastroesophageal reflux disease) Osteoarthritis Fibromyalgia History of TMJ disorder PTSD (post-traumatic stress disorder) Depression Anxiety Hypothyroid Hypertension Asthma Home Medications ?Medication ?Instructions ?Recorded ?Last Taken ?Type amlodipine 5 mg tablet 5 mg PO DAILY 11/05/23 10/06/24 History azelastine 205.5 mcg (0.15 %) 1 spray intranasal BID PRN sinus 11/05/23 Unknown History nasal spray symptoms buspirone 30 mg tablet 30 mg PO BID 11/05/23 10/06/24 History cetirizine 10 mg capsule (Zyrtec) 10 mg PO DAILY allergy symptoms 11/05/23 10/06/24 History chlorthalidone 15 mg tablet 15 mg PO DAILY 11/05/23 10/06/24 History levothyroxine 50 mcg tablet 50 mcg PO DAILY 11/05/23 07/09/24 History (Unithroid) prednisone 10 mg tablet 7.5 mg PO DAILY 11/05/23 07/08/24 History rosuvastatin 5 mg tablet 5 mg PO QHS 11/05/23 07/08/24 History tiotropium bromide 2.5 2 puff inhalation DAILY 11/05/23 10/06/24 History mcg/actuation mist for inhalation (Spiriva Respimat) tizanidine 2 mg capsule 2 mg PO DAILY muscle spasticity 11/05/23 07/08/24 History potassium chloride 10 mEq 10 meq PO QHS 06/03/24 07/08/24 History tablet,extended release ropinirole 1 mg tablet 1 mg PO BID 06/03/24 10/06/24 History levomefolate calcium 15 mg tablet 15 mg PO QDAY 06/11/24 07/08/24 History furosemide 20 mg tablet 20 mg PO MOWEFR 07/07/24 10/06/24 History gabapentin 600 mg tablet 1,200 mg PO BID 07/07/24 07/09/24 History levalbuterol tartrate 45 1 - 2 puff inhalation Q4H PRN PRN 07/07/24 10/06/24 History mcg/actuation aerosol inhaler wheezing vit no.133-ferrous 1 tab PO QHS 07/07/24 10/06/24 History fumarate 28 mg-folic acid 800 mcg tablet () sucralfate 1 gram tablet 1 g PO 4X/DAY #56 tabs 07/09/24 Unknown Rx paroxetine HCl 10 mg tablet 10 mg PO QHS 08/15/24 Unknown History ARMICARE 2 tab buccal DAILY PRN pain 10/01/24 Unknown History acetaminophen 500 mg tablet 1,000 mg PO BID 10/01/24 Unknown History (Acetaminophen Extra Strength) insulin lispro 100 unit/mL 1 unit subcut DAILY 10/01/24 Unknown History subcutaneous cartridge (Humalog U-100 Insulin) menthol 10 % topical cream 1 applic topical DAILY PRN PRN pain 10/01/24 10/06/24 History (Biofreeze (menthol)) tizanidine 2 mg capsule 4 mg PO QHS 10/01/24 Unknown History fluticasone furoate 200 1 inh inhalation Q24H #60 ea 10/29/24 Unknown Rx mcg-vilanterol 25 mcg/dose inhalation powder (Breo Ellipta) omeprazole 40 mg capsule,delayed 40 mg PO QDAY #30 caps 11/26/24 Unknown Rx release fluoxetine 40 mg capsule (Prozac) 40 mg PO DAILY 01/26/25 Unknown History albuterol sulfate 0.63 mg/3 mL 0.63 mg (3 mL) inhalation Q4-6H 01/28/25 Unknown Rx solution for nebulization PRN shortness of breath or wheezing #90 mL tezepelumab-ekko 210 mg/1.91 mL 210 mg (1.91 mL) subcut Q4W #1.91 01/28/25 Unknown Rx (110 mg/mL) subcutaneous pen mL injector (Tezspire) Allergy/AdvReac Type Severity Reaction Status Date / Time doxycycline Allergy Severe Nausea/Vom/ Verified 01/28/25 08:39 Diarrhea montelukast (From Singulair) Allergy Severe Other Verified 01/28/25 08:39 lubricant Allergy Mild Itching Verified 01/28/25 08:39 oxycodone Allergy Itching Verified 01/28/25 08:39 adhesive tape AdvReac Mild Rash Verified 01/28/25 08:39 Family History Other Asthma Diabetes Hypertension Kidney disease Thyroid disorder Surgical History History of esophagogastroduodenoscopy (EGD) History of surgery on right wrist S/P nasal septoplasty S/P wisdom tooth extraction History of mandibular surgery History of ankle surgery Social History household members: spouse current occupational status: disabled Smoking Status: Never smoker second hand exposure: No alcohol intake: never substance use type: does not use additional social history: : Tram[place] Review of Systems (Anesthesia) ROS Narrative System reviewed and no additional complaints, except as documented.
[2025-02-02 09:32] VITALS: BP 142/78; PULSE 76; RESP 18; TEMP 36.4; O2SAT 100; BMI 52.7
[2025-02-02] MEDS: Lactated Ringers 1,000 ML 15 ML IV (09:41)
--- NOTE | 2025-02-02 10:09 | RAD_ITS ---
PROCEDURE: FLUOR GUIDANCE FOR SPINE INJ 02/02/2025 REASON FOR EXAM: BLOCK, CAUDAL TECHNIQUE: FLUOR GUIDANCE FOR SPINE INJ. Radiation dose: Fluoroscopy 4 seconds. Dose, 2.07 mGy. 2 images were submitted COMPARISON: None FINDINGS: Intraoperative fluoroscopic services provided for caudal block. RAD/Fluor Guidance for Spine Inj IMPRESSION: Intraoperative fluoroscopic services provided for caudal block. Reading Location: [facility]
[2025-02-02] MEDS: Lidocaine 1% (5 ml sdv) 5 ML Vial (10:10)
[2025-02-02] MEDS: 0.9% Normal Saline (Pres. free 10 ML Vial (10:11)
--- NOTE | 2025-02-02 10:18 | PCM.OPRPT ---
Operative Report (Standard) Operative Information Date of Procedure: 02/02/25 Pre-Operative Diagnosis: Lumbosacral radiculopathy, lumbosacral degenerative disc disease, lumbosacral spinal stenosis Post-Operative Diagnosis: Lumbosacral radiculopathy, lumbosacral degenerative disc disease, lumbosacral spinal stenosis Surgery/Procedure Performed: Diagnostic/therapeutic caudal epidural steroid injection under fluoroscopic guidance coronary care unit nurse: No Type of Anesthesia: Local MAC RN Documented Start/Stop Times: Operation Date: 02/02/25 10:30 Case Time Into Pre-Op 02/02/25 09:00 Anesthesia Start 02/02/25 10:05 Into Room 02/02/25 10:05 Procedure Start 02/02/25 10:10 Procedure End 02/02/25 10:14 Procedure Start Time: 10:19 Procedure Stop Time: 10:19 Select all DRAINS/GRAFTS/IMPLANTS that apply: None Estimated Blood Loss: 0 Specimen collected: No Description of surgery: ANESTHESIA: MAC. BLOOD LOSS: Minimal. COMPLICATIONS: None. DESCRIPTION OF PROCEDURE: History and physical of today was reviewed. Risks and benefits of the procedure were explained. The patient understood and agreed to proceed. Informed consent was obtained. IV inserted per routine protocol. The patient was taken to the operating room and placed in the prone position with a pillow positioned underneath the abdomen. The lower back and tailbone area was prepped and draped in a sterile fashion using iodine x3. Under fluoroscopy guidance on a lateral view, the caudal space was identified. The skin and subcutaneous tissue was anesthetized with approximately 3 mL of 1% lidocaine using a 25-gauge regular needle. Under direct visualization with fluoroscopy, using a 22-gauge 3-1/2-inch spinal needle, the needle was advanced via the skin through the sacral hiatus. The tip of the needle was passed through the sacrococcygeal ligament and advanced to approximately S4 area. After negative aspiration of blood or CSF, a total of 3 mL of contrast was injected to confirm correct placement of the needle as well as cephalad spread. The spread was followed to approximately L5 area. After confirmation on AP as well as lateral view and repeated negative aspiration, a total of 15 mL of preservative-free 0.125% Marcaine with 80 mg of Depo-Medrol was injected easily. The needle was then removed intact. The patient experienced no sign or symptoms of intrathecal or intravascular injection. The patient experienced no paresthesia. The procedure was completed without any apparent difficulty or any complications. The patient appeared to tolerate it well. ASSESSMENT AND PLAN: This is a 44-year-old female with lumbosacral radiculopathy, lumbosacral degenerative disc disease, lumbosacral spinal stenosis status post diagnostic/therapeutic caudal epidural steroid injection under fluoroscopic guidance, patient will continue her current medications, patient will follow-up in approximately 2 weeks for reevaluation. Surgical Findings: 0 Complications Complications: No Admit VTE Documentation VTE Present on Admission: No VTE Mechan Device Prophylaxis: None VTE Pharm Prophylaxis ordered?: No
[2025-02-02 10:20] VITALS: BP 108/51; BP 142/78; PULSE 82; RESP 16; TEMP 36.2; O2SAT 95
[2025-02-02 10:25] VITALS: BP 142/78; BP 93/49; PULSE 82; RESP 16; O2SAT 97
[2025-02-02 10:30] VITALS: BP 105/62; BP 142/78; PULSE 78; RESP 16; TEMP 36.6; O2SAT 97
[2025-02-02 10:47] VITALS: BP 142/78
--- NOTE | 2025-02-02 12:58 | PCM.POST.ANE ---
Anesthesia: Postop Eval I Current Vital Signs Temperature: 97 F Pulse Rate: 78 Blood Pressure: 105/62 Respiratory Rate: 16 Pulse Ox: 97 Assessment Airway patent: Yes Spontaneous unlabored respirations: Yes Mental status: Awake nausea: No Vomiting: No Anesthesia Complication: No Fluid Hydration Crystalloid volume administer (ml): 200 Total IV fluid infused: 200 Progress Note Anesthesia document: Postop Eval 1 completed: Yes
[2025-02-02 12:59] VITALS: BP 105/62; PULSE 78; RESP 16; TEMP 36.1; O2SAT 97
== END 2025-02-02 10:53 | disposition home or self-care (01) ==
LOC: SDC 08:48 → AC 08:49
PROVIDERS: PCP Family Medicine; Referring Provider Anesthesiology Pain Medicine; Visit Provider Anesthesiology Pain Medicine
PROC: 3E0S3BZ Introduction of Anesthetic Agent into Epidural Space, Percutaneous Approach (ICD-10-PCS; CPT 62282; principal; 2025-02-02 10:25)
DX: M51.17 Intervertebral disc disorders with radiculopathy, lumbosacral region (principal); E10.21 Type 1 diabetes mellitus with diabetic nephropathy; Z79.4 Long term (current) use of insulin; M48.07 Spinal stenosis, lumbosacral region; I10 Essential (primary) hypertension; E03.9 Hypothyroidism, unspecified; E78.00 Pure hypercholesterolemia, unspecified; Z79.890 Hormone replacement therapy; Z79.891 Long term (current) use of opiate analgesic; Z79.899 Other long term (current) drug therapy
CPT/HCPCS: 62323; 01992; 64483; 77003

== ENCOUNTER → 2025-02-20 | Outpatient (CLI) | payer MEDICARE, SELFPAY ==
[2025-02-20 15:36] LABS: CORTISOL AM 2.95 ug/dL (6.02-18.40)
== END | disposition home or self-care (01) ==
LOC: MFPLAB 12:23
PROVIDERS: PCP Family Medicine; Referring Provider Family Medicine; Visit Provider Family Medicine
DX: L02.92 Furuncle, unspecified (principal)
CPT/HCPCS: 36415; 82533

== ENCOUNTER → 2025-03-10 | Outpatient (CLI) | payer MEDICARE, SELFPAY ==
--- NOTE | 2025-03-10 16:47 | RAD_ITS ---
PROCEDURE: KNEE 4 OR MORE VIEWS 03/10/2025 REASON FOR EXAM: RIGHT KNEE PAIN TECHNIQUE: Procedure Code: RADKN Modality: DX Procedure: KNEE 4 OR MORE VIEWS RAD/Knee 4 or More Views IMPRESSION: No acute fracture or dislocations. Minimal degenerative changes. No large joint effusion. Moderate soft tissue edema. No radiographic foreign body. [id number]
[2025-03-10 17:59] LABS: Hematocrit 44.1 % (37-47); Hemoglobin 15.2 g/dL (12.0-15.0); Mean Corp Hgb Conc 34.5 g/dL (32-36); Mean Corpuscular Volume 87.7 fL (81-99); Mean Platelet Vol. 10.7 fl (6.2-12.0); Platelet Count 374 K/mm3 (150-450); RBC Distribution Width CV 12.9 % (11.6-14.6); RBC Distribution Width SD 41.1 fl (35.1-43.9); Red Blood Count 5.03 M/mm3 (4.2-5.4); White Blood Count 13.8 K/mm3 (4.4-11.0)
[2025-03-10 19:42] LABS: AST(SGOT) 37 U/L (<=31); Alanine Aminotransfer ALT/SGPT 40 U/L (<=34); Albumin, Serum 4.6 g/dL (3.5-5.0); Alkaline Phosphatase 148 U/L (35-104); Anion Gap 19 (5-15); BUN 15 mg/dL (4-19); BUN/Creat Ratio 21.9 RATIO (10-20); Calcium,Total 9.8 mg/dL (7.6-11.0); Carbon Dioxide 20.3 mmol/L (21.0-32.0); Chloride 99 mmol/L (98-108); Ferritin 101 ng/mL (22-378); Globulin 3.0 g/dL (2.2-4.2); Glucose 273 mg/dL (70-99); Iron 56 ug/dL (50-170); Iron Binding Capacity,Total 376 ug/dL (250-450); Iron Binding Capacity,Unsat 320 ug/dL (228-428); Potassium 3.2 mmol/L (3.3-5.1); Vitamin D,25 Hydroxy 30.5 ng/mL (30-100)
[2025-03-10 19:58] LABS: Cholesterol 151 mg/dL (<=200); Low Density Lipoprotein Calc. 77 mg/dL; Triglycerides 169 mg/dL; Very Low Density Lipoprotein 34 mg/dL (5-40); cholesterol:hdl ratio screen 3.74
== END | disposition home or self-care (01) ==
PROVIDERS: PCP Family Medicine; Referring Provider Family Medicine; Visit Provider Family Medicine
DX: Z13.220 Encounter for screening for lipoid disorders (principal); E10.9 Type 1 diabetes mellitus without complications; E55.9 Vitamin D deficiency, unspecified; E61.1 Iron deficiency; M25.561 Pain in right knee; R74.01 Elevation of levels of liver transaminase levels
CPT/HCPCS: 36415; 73564; 80053; 80061; 82306; 82728; 83540; 83550; 84443; 85027

== ENCOUNTER 2025-03-16 07:26 | Day surgery (SDC) | payer MEDICARE, SELFPAY ==
[2025-03-16] VITALS (7 sets, daily range): BP systolic 134–165; BP diastolic 69–87; PULSE 73–84; RESP 16–20; TEMP 36.2–36.6; O2SAT 99–100; BMI 49.8
--- NOTE | 2025-03-16 07:51 | PCM.PRE.AN2 ---
ASA Classification* ASA Classification ASA Classification: 3 Assessment & Plan Anesthesia* Anesthesia Assessment Anesthesia Assessment: Discussed sedation and/or anesthesia options, risks, benefits, and alternatives with patient/parents/legal guardian/POA. Questions invited. The patient/parents/legal guardian/POA seems to understand and agrees to proceed with anesthesia plan. Reviewed the physical assessment, medical history, allergy history and patient home medications list prior to surgery/procedure/anesthetic and documented any changes. Performed airway and anesthesia risk assessments. Anesthesia Type Anesthesia Type: MAC Anesthesia Focused Assessment* Airway Assessment Mouth opens: >3 cm Mallampati Score: II Labs Anesthesia Preop lab: CBC WBC 13.8 K/mm3 (4.4-11.0) H 03/10/25 16:48 03/10/25 RBC 5.03 M/mm3 (4.2-5.4) 03/10/25 16:48 03/10/25 Hgb 15.2 g/dL (12.0-15.0) H 03/10/25 16:48 03/10/25 Hct 44.1 % (37-47) 03/10/25 16:48 03/10/25 Plt Count 374 K/mm3 (150-450) 03/10/25 16:48 03/10/25 CHEMISTRY Potassium 3.2 mmol/L (3.3-5.1) L 03/10/25 16:48 03/10/25 Sodium 138 mmol/L (133-145) 03/10/25 16:48 03/10/25 Magnesium 2.1 mg/dL (1.6-2.6) 01/29/24 09:46 01/29/24 BUN 15 mg/dL (4-19) 03/10/25 16:48 03/10/25 Creatinine 0.67 mg/dL (0.70-1.20) L 03/10/25 16:48 03/10/25 Glucose 273 mg/dL (70-99) H 03/10/25 16:48 03/10/25 POC Glucose 128 mg/dL (74-106) H 10/06/24 08:18 10/06/24 TSH 1.490 uIU/mL (0.300-4.200) 03/10/25 16:48 03/10/25 COAG Urine Test Negative Negative 10/06/24 08:08 10/06/24 Pre-Assessment Diagnosis/Proposed Procedure Planned Operative Procedure(s): Block, Medial Branch Nerve, AT L4 L5 S1 Anesthesia History 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 When Was Last Pacemaker Check QUESTION #4 FULL TEXT: You/Your Family Experience fever (hyperthermia) with Anesthesia Last Oral Intake Last Oral intake: Last Oral Intake NPO since Meds taken in AM with sips of water? Meds patient instructed to take am of surgery PONV PONV - shirt sewer: PONV - shirt sewer Female Yes 03/09/25 08:30 HX of Motion Sickness Yes 03/09/25 08:30 HX of N/V After Surgery Yes 03/09/25 08:30 Non-Smoker Yes 03/09/25 08:30 Duration of Surgery greater No 03/09/25 08:30 than 60 minutes Number of Risk Factors 4 03/09/25 08:30 PONV Score Severe Risk 03/09/25 08:30 Height & Weight Height & Weight: Anesthesia: Height & Weight Height 5 ft 6 in 02/02/25 09:32 Respiratory Assessment Respiratory Assessment - shirt sewer: Respiratory Tract Infection Hx - shirt sewer Hx Respiratory Tract Infection No 03/09/25 08:30 STOP Sleep Apnea STOP Sleep Apnea - shirt sewer: STOP Sleep Apnea - shirt sewer Hx Hypertension Yes: CONTROLLED WITH MEDS 03/09/25 08:30 Hx Sleep Apnea Yes 03/09/25 08:30 CPAP No 03/09/25 08:30 BIPAP No 03/09/25 08:30 Do you snore loudly (louder than talking or can be heard Do you often feel tired/ fatigued/ sleepy during daytime? Has anyone observed you stop breathing during sleep? STOP Results Positive 03/09/25 08:30 QUESTION #5 FULL TEXT : Do you snore loudly (louder than talking or can be heard through closed doors)? 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 Specify any problems Hx of Preganancy in last 3 No 03/09/25 08:30 Months Nurse Filling Out Transfusion JZOLLFLORIN 03/09/25 08:30 & Questions: Date: 03/09/25 03/09/25 08:30 Time: 08:31 03/09/25 08:30 Patient unable to answer at this time (ie. confused, unrespo /Reproduction History /Reproductive History - shirt sewer: /Reproductive Hx- shirt sewer Hx Now Gestational Age (in weeks): EDC: Hx Hx Para Hx Section SAB No 03/09/25 08:30 Active Medications Active Medications: Current Medications Generic Name Dose Route Start Last Admin Trade Name Freq PRN Reason Stop Dose Admin Lactated Ringer's 1,000 mls @ 15 mls/hr 03/16/25 07:45 IV .Q48H AYAN PFSH Medical History Dietary restriction Non-smoker CPAP (continuous positive airway pressure) dependence Sleep apnea History of steroid therapy Yeast dermatitis Wears glasses Marijuana use Fatty liver High cholesterol Back pain Diabetic nephropathy Type 1 diabetes History of pain when walking Leg cramps History of edema Cardiology follow-up encounter Celiac disease GERD (gastroesophageal reflux disease) Osteoarthritis Fibromyalgia History of TMJ disorder PTSD (post-traumatic stress disorder) Depression Anxiety Hypothyroid Hypertension Asthma Home Medications ?Medication ?Instructions ?Recorded ?Last Taken ?Type amlodipine 5 mg tablet 5 mg PO DAILY 11/05/23 02/01/25 History buspirone 30 mg tablet 30 mg PO BID 11/05/23 02/01/25 History cetirizine 10 mg capsule (Zyrtec) 10 mg PO DAILY allergy symptoms 11/05/23 02/01/25 History chlorthalidone 15 mg tablet 15 mg PO DAILY 11/05/23 10/06/24 History levothyroxine 50 mcg tablet 50 mcg PO DAILY 11/05/23 02/01/25 History (Unithroid) prednisone 10 mg tablet 5 mg PO DAILY 11/05/23 02/01/25 History rosuvastatin 5 mg tablet 5 mg PO QHS 11/05/23 02/01/25 History tiotropium bromide 2.5 2 puff inhalation DAILY 11/05/23 02/02/25 History mcg/actuation mist for inhalation (Spiriva Respimat) tizanidine 2 mg capsule 2 mg PO DAILY muscle spasticity 11/05/23 02/01/25 History potassium chloride 10 mEq 10 meq PO QHS 06/03/24 02/01/25 History tablet,extended release ropinirole 1 mg tablet 1 mg PO BID 06/03/24 02/01/25 History levomefolate calcium 15 mg tablet 15 mg PO QDAY 06/11/24 02/01/25 History furosemide 20 mg tablet 20 mg PO MOWEFR 07/07/24 01/30/25 History gabapentin 600 mg tablet 1,200 mg PO BID 07/07/24 02/01/25 History levalbuterol tartrate 45 1 - 2 puff inhalation Q4H PRN PRN 07/07/24 02/02/25 History mcg/actuation aerosol inhaler wheezing vits no.133-ferrous 1 tab PO QHS 07/07/24 02/01/25 History fumarate 28 mg-folic acid 800 mcg tablet () [facility] 2 tab buccal DAILY PRN pain 10/01/24 Unknown History acetaminophen 500 mg tablet 1,000 mg PO BID 10/01/24 02/01/25 History (Acetaminophen Extra Strength) insulin lispro 100 unit/mL 1 unit subcut DAILY 10/01/24 02/01/25 History subcutaneous cartridge (Humalog U-100 Insulin) menthol 10 % topical cream 1 applic topical DAILY PRN PRN pain 10/01/24 10/06/24 History (Biofreeze (menthol)) tizanidine 2 mg capsule 4 mg PO QHS 10/01/24 02/01/25 History fluticasone furoate 200 1 inh inhalation Q24H #60 ea 10/29/24 02/02/25 Rx mcg-vilanterol 25 mcg/dose inhalation powder (Breo Ellipta) omeprazole 40 mg capsule,delayed 40 mg PO QDAY #30 caps 11/26/24 02/01/25 Rx release fluoxetine 40 mg capsule (Prozac) 60 mg PO DAILY 01/26/25 02/01/25 History albuterol sulfate 0.63 mg/3 mL 0.63 mg (3 mL) inhalation Q4-6H 01/28/25 Unknown Rx solution for nebulization PRN shortness of breath or wheezing #90 mL Allergy/AdvReac Type Severity Reaction Status Date / Time doxycycline Allergy Severe Nausea/Vom/ Verified 03/09/25 08:18 Diarrhea montelukast (From Singulair) Allergy Severe Other Verified 03/09/25 08:18 lubricant Allergy Mild Itching Verified 03/09/25 08:18 oxycodone Allergy Itching Verified 03/09/25 08:18 adhesive tape AdvReac Mild Rash Verified 03/09/25 08:18 Family History Other Asthma Diabetes Hypertension Kidney disease Thyroid disorder Surgical History History of esophagogastroduodenoscopy (EGD) History of surgery on right wrist S/P nasal septoplasty S/P wisdom tooth extraction History of mandibular surgery History of ankle surgery Social History household members: spouse current occupational status: disabled Smoking Status: Never smoker second hand exposure: No alcohol intake: never substance use type: does not use additional social history: : Tramaine Review of Systems (Anesthesia) ROS Narrative System reviewed and no additional complaints, except as documented.
--- NOTE | 2025-03-16 07:53 | SUR.PREOP ---
PATIENT REFUSED TEST.
[2025-03-16] MEDS: Lactated Ringers 1,000 ML 15 ML IV (08:15)
--- NOTE | 2025-03-16 08:45 | RAD_ITS ---
PROCEDURE: L/S SPINE W BEND MIN 6 VW 03/16/2025 REASON FOR EXAM: MEDIAL BRANCH NERVE BLOCK ,L4, L5, S1 TECHNIQUE: Procedure Code: [id number] Modality: DX Procedure: L/S SPINE W BEND MIN 6 VW FINDINGS: Intraoperative fluoroscopy was performed. 6 images. 10.9 seconds. 8.46 mGy. See procedure report for full details. RAD/L/S Spine w Bend Min 6 Vw IMPRESSION: As above. Reading Location: [id number]
[2025-03-16] MEDS: Lidocaine 1% (5 ml sdv) 5 ML Vial (08:55)
--- NOTE | 2025-03-16 09:01 | OP.PCM_ITS ---
Operative Report (Standard) Operative Information Date of Procedure: 03/16/25 Pre-Operative Diagnosis: Lumbosacral spondylosis, lumbosacral degenerative disc disease, lumbosacral facet arthropathy Post-Operative Diagnosis: Lumbosacral spondylosis, lumbosacral degenerative disc disease, lumbosacral facet arthropathy Surgery/Procedure Performed: Bilateral lumbar medial branch block at L4, L5, S1 blowing engineer: No Type of Anesthesia: Local MAC RN Documented Start/Stop Times: Operation Date: 03/16/25 09:00 Case Time Into Pre-Op 03/16/25 07:43 Anesthesia Start 03/16/25 08:44 Into Room 03/16/25 08:44 Procedure Start 03/16/25 08:50 Procedure End 03/16/25 08:55 Anesthesia End 03/16/25 08:58 Out of Room 03/16/25 08:58 Procedure Start Time: 09:01 Procedure Stop Time: 09:01 Select all DRAINS/GRAFTS/IMPLANTS that apply: None Estimated Blood Loss: 0 Specimen collected: No Description of surgery: ANESTHESIA: MAC. BLOOD LOSS: Minimal. COMPLICATIONS: None. DESCRIPTION OF PROCEDURE: History and physical of today was reviewed. Risks and benefits of the procedure were explained. The patient understood and agreed to proceed. Informed consent was obtained. IV inserted per routine protocol. The patient was taken to the operating room and placed in the prone position with a pillow positioned underneath the abdomen. The lower back area was prepped and draped in a sterile fashion using iodine x3. Under fluoroscopy guidance on AP view, the L4 through S1 vertebral bodies were visualized. The skin and subcutaneous tissue was anesthetized with approximately 5 mL of 1% lidocaine using a 25-gauge regular needle. Under direct visualization with fluoroscopy, at approximately 25-degree angle, starting on the left L4, ending on the right L4, passing through the L5 and S1 bilaterally, using a 22-gauge 3-1/2-inch spinal needle, the needle was advanced via the skin. The tip of the needle was maneuvered and directed towards the superior medial gutter of the transverse process at the vicinity of the medial branch. Once tip of the needle was in contact with the bone, the needle was pulled approximately 2 mm off the bone. After negative aspiration for blood or CSF and confirmation on AP, oblique as well as lateral view, a total of 12 mL of preservative-free 0.25% Marcaine with 80 mg of Depo-Medrol was injected in divided doses between those six levels. The needles were then removed intact. The patient experienced no sign or symptoms of intrathecal or intravascular injection. The patient experienced no paresthesia. The procedure was completed without any apparent difficulty or any complications. The patient appeared to tolerate it well. ASSESSMENT AND PLAN: This is a 44-year-old female with lumbosacral spondylosis, lumbosacral degenerative disc disease, lumbar facet arthropathy, status post bilateral lumbar medial branch block at L4 L5-S1, patient will continue her current medications, patient will follow-up in approximately 2 weeks for reevaluation. Surgical Findings: 0 Complications Complications: No Admit VTE Documentation VTE Present on Admission: No VTE Mechan Device Prophylaxis: None VTE Pharm Prophylaxis ordered?: No
--- NOTE | 2025-03-16 09:02 | PCM.POST.ANE ---
Anesthesia: Postop Eval I Current Vital Signs Temperature: 97.1 F Pulse Rate: 78 Blood Pressure: 134/72 Respiratory Rate: 16 Pulse Ox: 100 Oxygen Delivery Method: Room Air Assessment Airway patent: Yes Spontaneous unlabored respirations: Yes Mental status: Awake and Calm nausea: No Vomiting: No Anesthesia Complication: No Fluid Hydration Crystalloid volume administer (ml): 400 Total IV fluid infused: 400 Progress Note Anesthesia document: Postop Eval 1 completed: Yes
--- NOTE | 2025-03-16 10:27 | PCM.POSTANE2 ---
Anesthesia Postop Eval I Sum Postop Eval Completion status Anesthesia document: Postop Eval 1 completed: Yes Anesthesia Postop Eval I Summary Anesthesia Postop Eval I Summary: Anesthesia Postop Eval I: Assessment Summary Airway patent Yes 03/16/25 09:02 MANAGER [email or web address] Spontaneous unlabored Yes 03/16/25 09:02 RONALDO respirations Mental status Awake,Calm 03/16/25 09:02 MANAGER [email or web address].[email or web address] nausea No 03/16/25 09:02 NHAN.[email or web address] Vomiting No 03/16/25 09:02 RONALDO Anesthesia Postop Eval I: Fluid Summary Crystalloid volume administer 400 03/16/25 09:02 NHAN.[email or web address] (ml) Colloids volume administered ( ml) Blood Product volume administered (ml) Total IV fluid infused 400 03/16/25 09:02 RONALDO Anesthesia Postop Eval I: Summary Notes Anesthesia Complication No 03/16/25 09:02 RNOALDO Anesthesia Complication Comment: Post-operative progress note Anesthesia: Postop Eval II Evaluation Mental status: Awake Pain Level: 1 nausea: No Vomiting: No
== END 2025-03-16 09:49 | disposition home or self-care (01) ==
LOC: SDC 07:27 → AC 07:28
PROVIDERS: PCP Family Medicine; Referring Provider Anesthesiology Pain Medicine; Visit Provider Anesthesiology Pain Medicine
PROC: 3E0S3BZ Introduction of Anesthetic Agent into Epidural Space, Percutaneous Approach (ICD-10-PCS; CPT 62322; principal; 2025-03-16 08:55)
DX: M47.817 Spondylosis without myelopathy or radiculopathy, lumbosacral region (principal); Z79.4 Long term (current) use of insulin; E10.9 Type 1 diabetes mellitus without complications; M51.379 Other intervertebral disc degeneration, lumbosacral region without mention of lumbar back pain or lower extremity pain; M46.97 Unspecified inflammatory spondylopathy, lumbosacral region; F41.9 Anxiety disorder, unspecified; F32.A Depression, unspecified; E03.9 Hypothyroidism, unspecified; J45.909 Unspecified asthma, uncomplicated; Z79.899 Other long term (current) drug therapy; Z79.51 Long term (current) use of inhaled steroids
CPT/HCPCS: 64493; 64494; 01992; 64483; 72114; 82962

== ENCOUNTER → 2025-03-20 | Outpatient (CLI) | payer MEDICARE, SELFPAY ==
[2025-03-20 18:25] LABS: Potassium 3.7 mmol/L (3.3-5.1)
== END | disposition home or self-care (01) ==
LOC: MFPLAB 16:02
PROVIDERS: PCP Family Medicine; Visit Provider Family Medicine
DX: E87.6 Hypokalemia (principal)
CPT/HCPCS: 36415; 84132

== ENCOUNTER → 2025-04-08 | Outpatient (CLI) | payer MEDICARE, SELFPAY ==
[2025-04-08 12:32] LABS: Hematocrit 42.4 % (37-47); Hemoglobin 14.4 g/dL (12.0-15.0); Mean Corp Hgb Conc 34.0 g/dL (32-36); Mean Corpuscular Volume 89.6 fL (81-99); Mean Platelet Vol. 10.8 fl (6.2-12.0); Platelet Count 305 K/mm3 (150-450); RBC Distribution Width CV 13.2 % (11.6-14.6); RBC Distribution Width SD 43.2 fl (35.1-43.9); Red Blood Count 4.73 M/mm3 (4.2-5.4); White Blood Count 10.1 K/mm3 (4.4-11.0)
[2025-04-08 14:16] LABS: Albumin, Serum 4.2 g/dL (3.5-5.0); Alkaline Phosphatase 152 U/L (35-104); Chloride 103 mmol/L (98-108); Potassium 3.5 mmol/L (3.3-5.1)
[2025-04-08 15:58] LABS: AST(SGOT) 57 U/L (<=31); Alanine Aminotransfer ALT/SGPT 71 U/L (<=34); Anion Gap 17 (5-15); BUN 11 mg/dL (4-19); BUN/Creat Ratio 20.3 RATIO (10-20); CORTISOL AM 6.98 ug/dL (6.02-18.40); Calcium,Total 9.9 mg/dL (7.6-11.0); Carbon Dioxide 20.2 mmol/L (21.0-32.0); Cholesterol 147 mg/dL (<=200); Ferritin 114 ng/mL (22-378); Globulin 2.8 g/dL (2.2-4.2); Glucose 145 mg/dL (70-99); Low Density Lipoprotein Calc. 72 mg/dL; Triglycerides 130 mg/dL; Very Low Density Lipoprotein 26 mg/dL (5-40); Vitamin D,25 Hydroxy 28.9 ng/mL (30-100); cholesterol:hdl ratio screen 2.99
== END | disposition home or self-care (01) ==
LOC: MFPLAB 10:00
PROVIDERS: PCP Family Medicine; Visit Provider Family Medicine
DX: E55.9 Vitamin D deficiency, unspecified (principal); E10.9 Type 1 diabetes mellitus without complications; E61.1 Iron deficiency; I10 Essential (primary) hypertension
CPT/HCPCS: 36415; 80053; 80061; 82306; 82533; 82728; 83036; 85027

== ENCOUNTER → 2025-04-08 | Outpatient (CLI) | payer MEDICARE, SELFPAY ==
--- NOTE | 2025-04-08 08:05 | MRI_ITS ---
PROCEDURE: LOWER EXT JOINT ONLY (ROUTINE) 04/08/2025 REASON FOR EXAM: RIGHT KNEE LOVKING, CLICKING AND PAINFUL TECHNIQUE: Procedure Code: MRILEJ Modality: MR Procedure: LOWER EXT JOINT ONLY (ROUTINE) Multiplanar and multisequence images were obtained without IV contrast administration. COMPARISON: COMPARISON : None relevant FINDINGS: Menisci: Medial meniscus:Fraying of the free edge with slight tear of the undersurface of the body of the meniscus. Normal root attachment. Lateral meniscus: Normal morphology and signal intensity. No tears or degenerative changes. Ligaments: Anterior cruciate ligament (ACL): Intact, with normal signal intensity and morphology. The anteromedial and posterolateral bundles are intact. Posterior cruciate ligament (PCL): Intact, with normal signal intensity and morphology. Medial collateral ligament (MCL): Intact, with normal signal intensity and morphology. Lateral collateral ligament (LCL): Intact, with normal signal intensity and morphology. Articular Cartilage: Patellofemoral joint: Chondromalacia involving the medial patellar facet. Tibiofemoral joints: Mild chondromalacia involving the medial and lateral compartment without full-thickness fissuring Bone and Soft Tissues: Bone marrow: Normal bone marrow signal intensity. No bone marrow edema or lesions. Effusion: Small joint effusion. No loose body. Quadriceps and patellar tendons: Intact, with normal signal intensity and morphology. Semimembranosus tendon: Intact, with normal signal intensity and morphology. Semitendinosus tendon: Intact, with normal signal intensity and morphology. Gracilis tendon: Intact, with normal signal intensity and morphology. Popliteal recess: Complex ruptured popliteal cyst measuring 24 x 9 x 16 mm. Soft tissues: Diffuse soft tissue edema around the posterior calf MRI/Lower Ext Joint Only (Routine) IMPRESSION: Ruptured popliteal cyst measuring up to 6 cm. Mild chondromalacia involving the medial patellar facet. Subtle tear of the free edge of the body of the medial meniscus. Normal cruciate ligaments and collateral ligaments of the knee. Reading Location: [id number]
== END | disposition home or self-care (01) ==
LOC: OPMRI 08:03
PROVIDERS: PCP Family Medicine; Referring Provider Family Medicine; Visit Provider Family Medicine
DX: M25.561 Pain in right knee (principal)
CPT/HCPCS: 73721

== ENCOUNTER → 2025-05-19 | Outpatient (CLI) | payer MEDICARE, SELFPAY ==
[2025-05-19 12:59] LABS: CORTISOL AM 2.73 ug/dL (6.02-18.40)
== END | disposition home or self-care (01) ==
LOC: MTLAB 09:28
PROVIDERS: PCP Family Medicine; Referring Provider Family Medicine; Visit Provider Family Medicine
DX: E27.49 Other adrenocortical insufficiency (principal)
CPT/HCPCS: 36415; 82533

== ENCOUNTER 2025-06-18 09:05 | Outpatient (CLI) | payer MEDICARE, SELFPAY ==
[2025-06-18 11:29] LABS: CORTISOL AM 2.11 ug/dL (6.02-18.40)
== END 2025-06-18 23:59 | disposition home or self-care (01) ==
LOC: MFPLAB 09:05
PROVIDERS: PCP Family Medicine; Visit Provider Family Medicine
DX: Z00.00 Encounter for general adult medical examination without abnormal findings (principal)
CPT/HCPCS: 36415; 82533